=== PATIENT | female | born 1955 | race Caucasian/White ===

== ENCOUNTER 2025-06-14 08:43 | Inpatient (IN) | payer MEDICARE ==
[2025-06-14] MEDS ORDERED: HEPARIN SODIUM 1,000 UN/ML (10ML VL) IV PRN (09:10)
[2025-06-14] MEDS ORDERED: VANCOMYCIN IV PER PHARMACY 1 EACH MISC MISCELLANE PRN (09:10)
--- NOTE | 2025-06-14 09:25 | ED ---
General Adult HPI - General Chief complaint: Arrhythmia/Palpitations Stated complaint: Afib Time Seen by Provider: 06/14/25 08:56 Source: patient, EMS, RN notes reviewed Mode of arrival: EMS - History of Present Illness Initial comments: This is a 70-year-old female presenting to the emergency department as a transfer from [place] via EMS for further management of new onset atrial fibrillation with rapid ventricular response. Patient states that she went to the emergency department yesterday evening for concerns of generalized weakness and difficulty ambulation due to weakness of her bilateral lower extremities. Patient does report over the last 2 months she has been feeling increasingly weak however denies symptoms of exertional dyspnea, chest pain, palpitations, fevers or chills. At this time on questioning patient acute complaint heart palpitations, dyspnea, headaches, abdominal pain, urinary or bowel habit changes. Denies peripheral edema, orthopnea, exertional dyspnea. At outside ER facility patient's labs are concerning for an elevated troponin of 0.815, elevated NT proBNP of 13,500, urinalysis concerning for infection with 2+ bacteria, numerous white cells and leukocytes, LACY with a creatinine of 2.88, and CBC with a leukocytosis of 28.9 and transaminitis with an AST of 178, ALT of 271 and alkaline phosphatase of 183. - Related Data Allergies Allergy/AdvReac Type Severity Reaction Status Date / Time No Known Allergies Allergy Verified 06/14/25 08:55 Review of Systems ROS Statement: Those systems with pertinent positive or pertinent negative responses have been documented in the HPI. ROS Other: All systems not noted in ROS Statement are negative. Past Medical History Past Medical History: No Reported History History of Any Multi-Drug Resistant Organisms: None Reported Past Surgical History: Section, Tubal Ligation Additional Past Surgical History / Comment(s): Bilateral cataract surgery Past Psychological History: Anxiety Smoking Status: Never smoker Past Alcohol Use History: None Reported Past Drug Use History: None Reported General Exam General appearance: alert, in no apparent distress, obese Eye exam: Present: normal appearance, PERRL, EOMI. Absent: scleral icterus, conjunctival injection, periorbital swelling Neck exam: Present: normal inspection. Absent: tenderness, meningismus, lymphadenopathy Respiratory exam: Present: normal lung sounds bilaterally. Absent: respiratory distress, wheezes, rales, rhonchi, stridor Cardiovascular Exam: Present: tachycardia, irregular rhythm. Absent: regular rate, normal rhythm GI/Abdominal exam: Present: soft, normal bowel sounds. Absent: distended, tende rness, guarding, rebound, rigid Extremities exam: Present: normal inspection, full ROM, normal capillary refill, other (left lower leg medial erythema and edema). Absent: tenderness, pedal edema, joint swelling, calf tenderness Back exam: Present: normal inspection. Absent: CVA tenderness (R), CVA tenderness (L) Course Vital Signs 06/14/25 06/14/25 08:46 08:58 Temperature 98.1 F Pulse Rate 102 H 108 H Respiratory 20 20 Rate Blood Pressure 99/89 107/51 O2 Sat by Pulse 93 L 94 L Oximetry Medical Decision Making - Medical Decision Making Was pt. sent in by a medical professional or institution (LAVELL Araujo, FITNESS CONSULTANT, urgent care, hospital, or shelter...) When possible be specific @ -Patient was transferred from outside facility for diagnoses as described below. Did you speak to anyone other than the patient for history (EMS, parent, family, police, friend...)? What history was obtained from this source @ -No Did you review nursing and triage notes (agree or disagree)? Why? @ -I reviewed and agree with nursing and triage notes Were old charts reviewed (outside hosp., previous admission, EMS record, old EKG, old radiological studies, urgent care reports/EKG's, shelter records)? Report findings @ -I reviewed the patient's transfer packet from [facility] where EKG revealed atrial fibrillation with rapid ventricular response, elevated troponin, LACY and leukocytosis. Differential Diagnosis (chest pain, altered mental status, abdominal pain women, abdominal pain men, vaginal bleeding, weakness, fever, dyspnea, syncope, headache, dizziness, GI bleed, back pain, seizure, CVA, palpatations, mental health, musculoskeletal)? @ -Differential Weakness: Hypoglycemia, shock, sepsis, hyponatremia, anemia, infection, AR, ETOH, adverse medicine reaction, overdose, stroke, this is not meant to be an all-inclusive list. EKG interpreted by me (3pts min.). @ -Completed at 854 atrial fibrillation with rapid ventricular response, ventricular rate of 104, QRS 94, QT 345, QTc 405. X-rays interpreted by me (1pt min.). @ -None done CT interpreted by me (1pt min.). @ -None done U/S interpreted by me (1pt. min.). @ -None done What testing was considered but not performed or refused? (CT, X-rays, U/S, l abs)? Why? @ -None What meds were considered but not given or refused? Why? @ -None Did you discuss the management of the patient with other professionals (professionals i.e. DrKena, PA, FITNESS CONSULTANT, lab, RT, psych nurse, social media content specialist, professor of family medicine, teacher, contracting officer, rn case mgr)? Give summary @ -I spoke with attending Dr. Guidry, was agreed to admit the patient. Was smoking cessation discussed for >3mins.? @ -No Was critical care preformed (if so, how long)? @ -Yes, great this patient was Were there social determinants of health that impacted care today? How? (Homelessness, low income, unemployed, alcoholism, drug addiction, transportation, low edu. Level, literacy, decrease access to med. care, penitentiary, rehab)? @ -No Was there de-escalation of care discussed even if they declined (Discuss DNR or withdrawal of care, Hospice)? DNR status @ -No What co-morbidities impacted this encounter? (DM, HTN, Smoking, COPD, CAD, Cancer, CVA, ARF, Chemo, Hep., AIDS, mental health diagnosis, sleep apnea, morbid obesity)? @ -morbid obesity Was patient admitted / discharged? Hospital course, mention meds given and route, prescriptions, significant lab abnormalities, going to OR and other pertinent info. @ -Admitted. 70-year-old female presenting as transfer for new onset A-fib with RVR. Patient rate is stable on arrival fluctuating between the 90s to 110s, nursing staff has ceased Cardizem drip on patient's arrival. Patient is in no signs of distress. Physical exam reveals edematous and bilateral lower extremity erythema of legs with the left mid leg more erythematous concerning for cellulitis. Patient will be continued on Cardizem drip at a rate of 5. Additionally, she is provided with the lactated Ringer's bolus and started on Rocephin for UTI/cellulitis after blood cultures are obtained. Patient is also started on a heparin drip with concern for NSTEMI and new onset atrial fibrillation with rapid ventricular response. Case was discussed with my atten ding Dr. Blunt. Patient is admitted to Dr. Hurley Undiagnosed new problem with uncertain prognosis? @ -No Drug Therapy requiring intensive monitoring for toxicity (Heparin, Nitro, Ins ulin, Cardizem)? @ -yes, Heparin and cardizem drips Were any procedures done? @ -No Diagnosis/symptom? @ -Urinary tract infection/cellulitis with sepsis, LACY, NSTEMI, new onset atrial fibrillation with rapid ventricular response Acute, or Chronic, or Acute on Chronic? @ -acute Uncomplicated (without systemic symptoms) or Complicated (systemic symptoms)? @ -complicated Side effects of treatment? @ -No Exacerbation, Progression, or Severe Exacerbation? @ -No Poses a threat to life or bodily function? How? (Chest pain, USA, AR, pneumonia, PE, COPD, DKA, ARF, appy, cholecystitis, CVA, Diverticulitis, Homicidal, Suicidal, threat to staff... and all critical care pts) @ -Yes, NSTEMI has potential to lead to endorgan system dysfunction and potential of . Disposition Clinical Impression: Atrial fibrillation with rapid ventricular response, LACY (acute kidney injury), NSTEMI (non-ST elevated myocardial infarction) Disposition: ADMITTED IP TO THIS [facility] Condition: Serious Referrals: None,Stated [Primary Care Provider] - 1-2 days Decision to Admit Reason: Admit from EC Decision Date: 06/14/25 Decision Time: 09:39
[2025-06-14] MEDS: VANCOMYCIN 2,500 MG in SODIUM CHLORIDE 0.9% 500 ML 500 ML IVPB STA (09:37)
[2025-06-14] MEDS: CEFEPIME 2 GM in SODIUM CHLORIDE 0.9% 100 ML IVPB STA (09:37)
[2025-06-14] MEDS ORDERED: ONDANSETRON 4 MG/2 ML VIAL IVP PRN (09:39)
[2025-06-14] MEDS ORDERED: NALOXONE 0.4 MG/ML 1 ML VIAL IV PRN (09:39)
[2025-06-14] MEDS: LACTATED RINGERS 1,000 ML IV ONE (10:04)
[2025-06-14] MEDS: cefTRIAXone IN SWFI 1,000 MG/10 ML SYRINGE IVP SCH (10:05)
[2025-06-14] MEDS: HEPARIN SODIUM 1,000 UN/ML (10ML VL) IV ONE (10:12)
[2025-06-14] MEDS: HEPARIN SOD,PORK IN 0.45% NACL 25,000 UNIT in 0.45% NACL 1 250ML.BAG IV SCH (10:13)
[2025-06-14] MEDS: DILTIAZEM 125 MG in DEXTROSE 5% IN WATER 100 ML IV SCH (10:19)
[2025-06-14 10:51] LABS: HCT 33.8 % (37.2-46.3); HGB 11.4 g/dL (12.0-15.0); MCH 32.4 pg (27.0-32.0); MCHC 33.7 g/dL (32.0-37.0); MCV 96.0 fL (80.0-97.0); Platelet Count 141 10*3/uL (140-440); RBC 3.52 10*6/uL (4.10-5.20); RDW 13.5 % (11.5-14.5); WBC 28.80 10*3/uL (4.50-10.00)
[2025-06-14 10:53] LABS: ALT 211 U/L (4-34); AST 142 U/L (14-36); African American GFR (CKD) 26 (>60 ml/min/1.73 sqM); Albumin 2.9 g/dL (3.5-5.0); Alkaline Phosphatase 200 U/L (38-126); Anion Gap 10 mmol/L; Blood Urea Nitrogen 57 mg/dL (7-17); Calcium 8.1 mg/dL (8.4-10.2); Carbon Dioxide 23 mmol/L (22-30); Chloride 105 mmol/L (98-107); Glucose 80 mg/dL (74-99); Non-African American GFR(CKD) 23 (>60 ml/min/1.73 sqM); Potassium 3.4 mmol/L (3.5-5.1); Sodium 138 mmol/L (137-145); Total Protein 6.0 g/dL (6.3-8.2)
[2025-06-14 11:00] LABS: INR 1.1 (<1.2); Partial Thromboplastin Time 28.2 sec (22.0-30.0); Prothrombin Time 11.6 sec (10.0-12.5)
[2025-06-14 11:31] LABS: Lymphocytes # (M) 3.46 k/uL (1.0-4.8); Monocytes # (M) 1.44 k/uL (0-1.0); Neutrophils # (M) 23.90 k/uL (1.3-7.7); Neutrophils % (M) 83 %; Total Cells Counted 100
[2025-06-14 11:32] LABS: Anisocytosis (M) Present
--- NOTE | 2025-06-14 12:45 | US ---
EXAMINATION TYPE: US renals and bladder DATE OF EXAM: 06/14/2025 COMPARISON: NONE CLINICAL INDICATION: Female, 70 years old with history of eda; Patient denies any signs, symptoms, or relevant history TECHNIQUE: Grayscale imaging of the bilateral kidneys and urinary bladder: FINDINGS: EXAM MEASUREMENTS: Right Kidney: 11.0 x 5.2 x 5.5 cm Left Kidney: 10.7 x 5.9 x 5.5 cm Post Void Residual Volume: NA mL Right Kidney: wnl, no evidence for hydronephrosis, mass or renal calculus. Left Kidney: wnl, no evidence for hydronephrosis, mass or renal calculus. Bladder: Not fully distended Bilateral Jets seen: Not able to assess Normal Post Void Residual: NA There is no evidence for hydronephrosis at this point in time. No nephrolithiasis is seen. No helena s are identified. The urinary bladder is anechoic. IMPRESSION: No evidence for acute process. [facility], , 06/14/2025 12:43 PM
--- NOTE | 2025-06-14 13:22 | P.CRDCN ---
History of Present Illness Consult date: 06/14/25 Consult reason: atrial fibrillation History of present illness: Patient is a 70-year-old female with no significant past medical history was transferred from [place] via EMS to [facility] for further management of new onset A-fib with the RVR. Patient reports that she presented to the outside facility yesterday due to generalized weakness, fatigue and nausea and vomiting ongoing for 3 days. Patient reports that yesterday she could barely walk and take shower due to fatigue and tiredness. Denies chest pain or shortness of breath. Patient reports that she has been trying keto diet to lose weight. Patient reports no history of coronary artery disease or arrhythmias. 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 Patient is currently not on any medication including medication for blood pressure or diabetes or any blood thinner. She is a non-smoker and no drinker and denies use of illicit drugs. Patient reports that she is too embarrassed to go to doctors due to her weight and have not seen a doctor for many years. Patient denies chest pain, shortness of breath, orthopnea, PND, dizziness, lightheadedness, worsening swelling of the legs, cough, dysuria, urgency or frequency of urination, diarrhea or constipation. Her troponin at outside facility was 0.8 and BNP 13,500 Labs and data on this admission: WBC 28, hemoglobin 11.4, platelet count 141, sodium 138, potassium 3.4, BUN 57, creatinine 2.15, AST 142, ALT 211, ALP 200 Troponin I 0.12 EKG shows A-fib with RVR Vitals: Temperature 98.1 F, pulse rate 102 bpm, respirate 20, blood pressure 99/89, oxygen saturation 93% on room air Review of systems: Pertinent positives and negatives as discussed in HPI, a complete review of systems was performed and all other systems are negative. Social history: As in HPI Family History: As in HPI Physical examination: Vital signs reviewed General: non toxic, no distress, appears at stated age, morbidly obese Derm: Warm erythematous nonpurulent lesions on lower extremities especially in skin fold and on bilateral frank Head: atraumatic, normocephalic, symmetric Eyes: EOMI, no lid lag, anicteric sclera, pupils equal round reactive to light ENT: Nose and ears atraumatic Neck: No cervical lymphadenopathy, trachea midline, supple Mouth: no lip lesion, mucus membranes moist Cardiovascular: S1S2 irregular, systolic murmur, positive dorsalis pedis pulse bilateral, 1+ bilateral pitting edema Lungs: CTA bilateral, no rhonchi, no rales, no accessory muscle use Abdominal: soft, nontender to palpation, no guarding Ext: muscle strength 5 out of 5 in all 4 extremities grossly, no gross muscle atrophy, no contractures, Neuro: CN II-XI grossly intact, no gross focal neuro deficits Psych: Alert, oriented, appropriate affect Assessment: #A-fib with RVR, new onset versus paroxysmal versus permanent #Elevated troponin, likely type II NSTEMI due to oxygen supply/demand mismatch #Sepsis secondary to infection, likely source is lower extremity cellulitis #Morbidly obese #Transaminitis #Prerenal azotemia #Normocytic anemia #Generalized weakness Plan: Discontinue heparin drip Initiate Eliquis 2.5 mg twice daily and then uptitrate to 5 mg twice daily once her renal function improves Initiate metoprolol 25 mg 3 times daily Continue with Cardizem drip Order lipid panel, TSH, HbA1c, vitamin B12 and folate RBC Order echocardiogram Order iron studies Order renal/bladder ultrasound Replete electrolytes CMP tomorrow a.m. Continue IV antibiotics as per ID Rest of management as per primary Dictation was produced using numberFire dictation software. Please excuse any grammatical, word or spelling errors. I signature Ed Lopes MD PGY 2 Past Medical History Past Medical History: No Reported History History of Any Multi-Drug Resistant Organisms: None Reported Past Surgical History: Section, Tubal Ligation Additional Past Surgical History / Comment(s): Bilateral cataract surgery Past Psychological History: Anxiety Smoking Status: Never smoker Past Alcohol Use History: None Reported Past Drug Use History: None Reported Medications and Allergies Home Medications Medication Instructions Recorded Confirmed Type No Known Home Medications 06/14/25 06/14/25 History Allergies Allergy/AdvReac Type Severity Reaction Status Date / Time No Known Allergies Allergy Verified 06/14/25 10:14 Physical Exam Vitals: Vital Signs Temp Pulse Resp BP Pulse Ox 06/14/25 10:16 110 H 20 100/39 97 06/14/25 08:58 108 H 20 107/51 94 L 06/14/25 08:46 98.1 F 102 H 20 99/89 93 L Intake and Output 06/13/25 06/14/25 06/14/25 22:59 06:59 14:59 Other: Weight 203.7 kg Results 06/14/25 10:00 06/14/25 10:00 Cardiac Enzymes 06/14/25 Range/Units 10:00 AST 142 H (14-36) U/L Comprehensive Metabolic Panel 06/14/25 Range/Units 10:00 Sodium 138 (137-145) mmol/L Potassium 3.4 L (3.5-5.1) mmol/L Chloride 105 (98-107) mmol/L Carbon Dioxide 23 (22-30) mmol/L BUN 57 H (7-17) mg/dL Creatinine 2.15 H (0.52-1.04) mg/dL Glucose 80 (74-99) mg/dL Calcium 8.1 L (8.4-10.2) mg/dL AST 142 H (14-36) U/L ALT 211 H (4-34) U/L Alkaline Phosphatase 200 H (38-126) U/L Total Protein 6.0 L (6.3-8.2) g/dL Albumin 2.9 L (3.5-5.0) g/dL Current Medications Generic Name Dose Route Start Last Admin Trade Name Freq PRN Reason Stop Dose Admin Acetaminophen 650 mg 06/14/25 09:39 Acetaminophen Tab 325 Mg Tab PO Q6HR PRN Mild Pain or Fever > 100.5 Ceftriaxone Sodium 1,000 mg 06/14/25 09:45 06/14/25 10:05 Ceftriaxone In Swfi 1,000 Mg/10 Ml Syringe IVP 1,000 mg Q24H ANUSHKA Administration Protocol Heparin Sodium (Porcine) 0 unit 06/14/25 09:10 Heparin Sodium 1,000 Un/Ml (10ml Vl) IV PER PROTOCOL PRN Low PTT Protocol Heparin Sodium/Sodium Chloride 250 mls @ 10 mls/hr 06/14/25 09:15 06/14/25 10:13 25,000 unit/ Sodium Chloride IV 4.909 units/kg/hr .Q24H ANUSHKA 10 mls/hr Administration Protocol 4.909 UNITS/KG/HR Diltiazem HCl 125 mg/ Dextrose 125 mls @ 5 mls/hr 06/14/25 09:45 06/14/25 10:19 /Water IV 5 mg/hr .Q24H ANUSHKA 5 mls/hr Administration Protocol 5 MG/HR Naloxone HCl 0.2 mg 06/14/25 09:39 Naloxone 0.4 Mg/Ml 1 Ml Vial IV Q2M PRN Opioid Reversal Ondansetron HCl 4 mg 06/14/25 09:39 Ondansetron 4 Mg/2 Ml Vial IVP Q8HR PRN Nausea And Vomiting Intake and Output 06/13/25 06/14/25 06/14/25 22:59 06:59 14:59 Other: Weight 203.7 kg Patient Weight 06/15/25 06:59 Weight 203.7 kg 06/14/25 10:00
[2025-06-14 13:47] LABS: Magnesium 1.8 mg/dL (1.6-2.3)
[2025-06-14] MEDS: POTASSIUM CHLORIDE ER 20 MEQ TAB.ER PO STA (13:48)
[2025-06-14] MEDS: METOPROLOL TARTRATE 25 MG TAB PO SCH (13:48)
[2025-06-14 13:52] LABS: Bacteria,Urine Occasional /hpf; Bilirubin,Urine Negative (Negative); Blood,Urine Small (Negative); Color,Urine Light Yellow; Glucose,Urine (UA) Negative (Negative); Ketones,Urine Negative (Negative); Leukocyte Esterase,Urine Large (Negative); Mucus,Urine Rare /hpf; Nitrite,Urine Negative (Negative); PH, Urine 5.5 (5.0-8.0); Protein,Urine Trace (Negative); RBC,Urine 3 /hpf (0-5); Specific Gravity,Urine 1.010 (1.001-1.035); Squamous Epithelial Cell,Urine <1 /hpf (0-4); Urobilinogen,Urine <2.0 mg/dL (<2.0); WBC,Urine 28 /hpf (0-5)
--- NOTE | 2025-06-14 15:02 | US ---
EXAMINATION TYPE: US abdomen limited DATE OF EXAM: 06/14/2025 COMPARISON: NONE CLINICAL INDICATION: Female, 70 years old with history of Elevated liver enzymes; Abnormal labs. TECHNIQUE: Grayscale and color Doppler imaging of the right upper quadrant was performed. FINDINGS: EXAM MEASUREMENTS: Liver Length: 19.7 cm Gallbladder Wall: 0.2 cm CBD: 0.5 cm Right Kidney: 12.1 x 5.8 x 5.0 cm Pancreas: Head and tail obscured by overlying bowel gas. Echogenic in apperance Liver: Enlarged in size Gallbladder: Echogenic focus = 2.3 cm. Internal posterior echoes. Evidence for sonographic Whitten's sign: neg CBD: wnl Right Kidney: Medial anechoic area seen at hilum, dilated renal pelvis. IMPRESSION: 1. No evidence for acute process. 2. Cholelithiasis. 3. Hepatomegaly [facility], , 06/14/2025 2:59 PM
--- NOTE | 2025-06-14 19:51 | P.HPIM ---
History of Present Illness H&P Date: 06/14/25 Chief Complaint: Tired This is a pleasant 70-year-old patient with no family doctor. She presents feeling unwell. Going on for a few days. Started feeling weak in the legs. Rather tired. Has chronic swelling of lower extremity but not such edema. Denies any chest pain or shortness of breath. She did not vomited 2 days ago. She continued to feel legs feel very weak. To the point of difficulty walking. EKG in the ER showed atrial fibrillation. Rate of 104. Patient placed on IV Cardizem drip. An IV heparin drip. Review of systems: GEN.: Tired EYES: None HEENT: None NECK: None RESPIRATORY: None CARDIOVASCULAR: None GASTROINTESTINAL: None GENITOURINARY: None MUSCULOSKELETAL: [Right pains LYMPHATICS: None HEMATOLOGICAL: None PSYCHIATRY: None NEUROLOGICAL: Does use a walker. Social history: . Lives with her . Does use a walker. Denies smoking. Denies alcohol. Physical examination: VITAL SIGNS: [98.1, 102, 20, 99 x 89, 93% room air upon presentation GENERAL: [BMI 70.3, reclining bed awake a bit tired appearing. EYES: [Pupils equal. Conjunctiva crzu l. HEENT: External appearance of nose and ears normal, oral cavity grossly normal. NECK: JVD not raised; masses not palpable. HEART: First and second heart sounds are normal; nonpitting edema. LUNGS: Respiratory rate increased; decreased breath sounds. ABDOMEN: Soft, nontender, liver spleen not palpable, no masses palpable. PSYCH: Alert and oriented x3; mood and affect cruz l. MUSCULOSKELETAL:No Clubbing/cyanosis;muscles-grossly intact NEUROLOGICAL: Cranial nerves grossly intact; no facial asymmetry, power and sensation grossly intact. LYMPHATICS: No lymph nodes palpable in the axilla and neck INVESTIGATIONS, reviewed in the clinical context: June 14, 2025: White count 28.8 hemoglobin 11.4 platelets 141 sodium 138 potassium 3.4 BUN 57 creatinine 2.15 AST 142 ALT 211 Troponin I 0.123 0.100 0.084 TSH 3.28 UA: Large leukoesterase occasional bacteria. Negative for nitrite EKG tracing personally reviewed by me-atrial fibrillation. Rate 104 PVC. Assessment and plan: - New onset atrial fibrillation with rapid ventricular rate IV Cardizem drip. Lopressor. Eliquis Cardiology consulted. 2D echo. - Morbid obesity BMI 70.3 Weight loss measures - Chronic gait dysfunction does use a walker at baseline - Chronic lower extremity lymphedema - Full code Care was discussed with patient. Questions answered. - Past Medical History Past Medical History: No Reported History Additional Past Medical History / Comment(s): cataract surgery, 2 sections History of Any Multi-Drug Resistant Organisms: None Reported Past Surgical History: Section, Tubal Ligation Additional Past Surgical History / Comment(s): Bilateral cataract surgery Past Anesthesia/Blood Transfusion Reactions: No Reported Reaction Past Psychological History: Anxiety Smoking Status: Never smoker Past Alcohol Use History: None Reported Past Drug Use History: None Reported - Past Family History Mother Family Medical History: Cancer Additional Family Medical History / Comment(s): mother- pancreatic cancer Medications and Allergies Home Medications Medication Instructions Recorded Confirmed Type No Known Home Medications 06/14/25 06/14/25 History Allergies Allergy/AdvReac Type Severity Reaction Status Date / Time No Known Allergies Allergy Verified 06/14/25 10:14 Physical Exam Vitals: Vital Signs Temp Pulse Pulse Resp BP BP Pulse Ox 06/14/25 16:00 98.6 F 95 16 91/46 06/14/25 14:47 97.5 F L 99 20 97/85 97 06/14/25 14:00 16 06/14/25 13:47 101 H 20 105/52 97 06/14/25 13:00 101 H 20 90/45 94 L 06/14/25 12:07 98.5 F 86 14 94/56 98 06/14/25 10:16 110 H 20 100/39 97 06/14/25 08:58 108 H 20 107/51 94 L 06/14/25 08:46 98.1 F 102 H 20 99/89 93 L Intake and Output 06/14/25 06/14/25 06/14/25 06:59 14:59 22:59 Intake Total 0 Output Total 150 Balance -150 0 Intake: Oral 0 Output: Urine 150 Other: Voiding Method External Catheter Weight 197.5 kg Results CBC & Chem 7: 06/14/25 10:00 06/14/25 10:00 Labs: Abnormal Lab Results - Last 24 Hours (Table) 06/14/25 06/14/25 06/14/25 Range/Units 10:00 10:00 10:00 WBC 28.80 H (4.50-10.00) 10*3/uL RBC 3.52 L (4.10-5.20) 10*6/uL Hgb 11.4 L (12.0-15.0) g/dL Hct 33.8 L (37.2-46.3) % MCH 32.4 H (27.0-32.0) pg Immature Gran # 0.15 H (0.00-0.04) 10*3/uL Neutrophils # (Manual) 23.90 H (1.3-7.7) k/uL Monocytes # (Manual) 1.44 H (0-1.0) k/uL Potassium 3.4 L (3.5-5.1) mmol/L BUN 57 H (7-17) mg/dL Creatinine 2.15 H (0.52-1.04) mg/dL Calcium 8.1 L (8.4-10.2) mg/dL Total Bilirubin 2.3 H (0.2-1.3) mg/dL AST 142 H (14-36) U/L ALT 211 H (4-34) U/L Alkaline Phosphatase 200 H (38-126) U/L Troponin I 0.123 H* (0.000-0.034) ng/mL Total Protein 6.0 L (6.3-8.2) g/dL Albumin 2.9 L (3.5-5.0) g/dL Urine Appearance (Clear) Urine Protein (Negative) Urine Blood (Negative) Ur Leukocyte Esterase (Negative) Urine WBC (0-5) /hpf Urine Bacteria (None) /hpf Urine Mucus (None) /hpf 06/14/25 06/14/25 06/14/25 Range/Units 13:10 13:43 16:20 WBC (4.50-10.00) 10*3/uL RBC (4.10-5.20) 10*6/uL Hgb (12.0-15.0) g/dL Hct (37.2-46.3) % MCH (27.0-32.0) pg Immature Gran # (0.00-0.04) 10*3/uL Neutrophils # (Manual) (1.3-7.7) k/uL Monocytes # (Manual) (0-1.0) k/uL Potassium (3.5-5.1) mmol/L BUN (7-17) mg/dL Creatinine (0.52-1.04) mg/dL Calcium (8.4-10.2) mg/dL Total Bilirubin (0.2-1.3) mg/dL AST (14-36) U/L ALT (4-34) U/L Alkaline Phosphatase (38-126) U/L Troponin I 0.100 H* 0.084 H* (0.000-0.034) ng/mL Total Protein (6.3-8.2) g/dL Albumin (3.5-5.0) g/dL Urine Appearance Cloudy H (Clear) Urine Protein Trace H (Negative) Urine Blood Small H (Negative) Ur Leukocyte Esterase Large H (Negative) Urine WBC 28 H (0-5) /hpf Urine Bacteria Occasional H (None) /hpf Urine Mucus Rare H (None) /hpf Thrombosis Risk Factor Assmnt - Choose All That Apply Any of the Below Risk Factors Present?: Yes Each Factor Represents 1 point: Age 41-60 years, Obesity (BMI >25), Swollen legs (current) Other Risk Factors: No Other congenital or acquired thrombophilia - If yes, enter type in comment: No Thrombosis Risk Factor Assessment Total Risk Factor Score: 3 Thrombosis Risk Factor Assessment Level: Moderate Risk
[2025-06-14] MEDS: APIXABAN 2.5 MG TABLET PO SCH (20:25)
[2025-06-14] MEDS ORDERED: CEFEPIME 1 GM in SODIUM CHLORIDE 0.9% 50 ML IVPB SCH (21:00)
--- NOTE | 2025-06-14 21:58 | P.CONS ---
History of Present Illness - Reason for Consult Consult date: 06/14/25 UTI, cellulitis, sepsis Requesting physician: Teresita Ugalde - Chief Complaint Weakness nausea and vomiting x 1 day - History of Present Illness Patient is a 70-year-old female with a past medical history significant for anxiety morbid obesity did have a chronic swelling lower extremity has been transfer from [facility] for evaluation and treatment of new onset atrial fibrillation with RVR patient presented to the hospital presenting concern of generalized weakness fatigue nausea and vomiting that has been going on for 3 days patient described multiple episode of vomiting no significant abdominal pain or diarrhea though has been feeling weak and fatigue patient denies having any headache or URI symptom no chest pain shortness of breath or cough patient on presentation to the hospital was afebrile no fever Hemoccult subsequently patient was tachycardic not hypotensive or hypoxic patient did have elevated white of 28.80. Creatinine has been mildly elevated also with elevated liver enzymes urine has been positive patient did have a renal ultrasound no evidence for acute process patient was noticed to have some erythema to the left lower extremity she has been empirically started on Rocephin infectious was consulted for further management of antibiotic to be concerning for UTI cellulitis and sepsis Review of Systems Positive point and negatives has been mentioned in the HPI, complete review of systems was performed and all other systems are negative Past Medical History Past Medical History: No Reported History History of Any Multi-Drug Resistant Organisms: None Reported Past Surgical History: Section, Tubal Ligation Additional Past Surgical History / Comment(s): Bilateral cataract surgery Past Psychological History: Anxiety Smoking Status: Never smoker Past Alcohol Use History: None Reported Past Drug Use History: None Reported - Past Family History Mother Family Medical History: Cancer Additional Family Medical History / Comment(s): mother- pancreatic cancer Medications and Allergies Home Medications Medication Instructions Recorded Confirmed Type No Known Home Medications 06/14/25 06/14/25 History Allergies Allergy/AdvReac Type Severity Reaction Status Date / Time No Known Allergies Allergy Verified 06/14/25 10:14 Physical Exam Vitals: Vital Signs Temp Pulse Resp BP Pulse Ox 06/14/25 10:16 110 H 20 100/39 97 06/14/25 08:58 108 H 20 107/51 94 L 06/14/25 08:46 98.1 F 102 H 20 99/89 93 L Intake and Output 06/13/25 06/14/25 06/14/25 22:59 06:59 14:59 Other: Weight 203.7 kg GENERAL DESCRIPTION: Elderly female lying in bed, no distress. No tachypnea or accessory muscle of respiration use. HEENT: Shows Pallor , no scleral icterus. Oral mucous membrane is dry. NECK: Trachea central, no thyromegaly. LUNGS: Unlabored breathing. Clear to auscultation anteriorly. No wheeze or crackle. HEART: S1, S2, regular rate and rhythm. No loud murmur ABDOMEN: Soft, no tenderness , guarding or rigidity, no organomegaly EXTREMITIES: Diffuse swelling to bilateral lower extremity with some erythema to the left leg mildly warm no skin breakdown or any drainage SKIN: No rash, no masses palpable. NEUROLOGICAL: The patient is awake, alert, oriented x3, mood and affect normal. Results CBC & Chem 7: 06/15/25 06:41 06/15/25 05:48 Labs: Abnormal Lab Results - Last 24 Hours (Table) 06/14/25 06/14/25 06/14/25 Range/Units 10:00 10:00 10:00 WBC 28.80 H (4.50-10.00) 10*3/uL RBC 3.52 L (4.10-5.20) 10*6/uL Hgb 11.4 L (12.0-15.0) g/dL Hct 33.8 L (37.2-46.3) % MCH 32.4 H (27.0-32.0) pg Immature Gran # 0.15 H (0.00-0.04) 10*3/uL Neutrophils # (Manual) 23.90 H (1.3-7.7) k/uL Monocytes # (Manual) 1.44 H (0-1.0) k/uL Potassium 3.4 L (3.5-5.1) mmol/L BUN 57 H (7-17) mg/dL Creatinine 2.15 H (0.52-1.04) mg/dL Calcium 8.1 L (8.4-10.2) mg/dL Total Bilirubin 2.3 H (0.2-1.3) mg/dL AST 142 H (14-36) U/L ALT 211 H (4-34) U/L Alkaline Phosphatase 200 H (38-126) U/L Troponin I 0.123 H* (0.000-0.034) ng/mL Total Protein 6.0 L (6.3-8.2) g/dL Albumin 2.9 L (3.5-5.0) g/dL Assessment and Plan (1) Leukocytosis Current Visit: Yes Status: Acute Code(s): D72.829 - ELEVATED WHITE BLOOD CELL COUNT, UNSPECIFIED SNOMED Code(s): 263980933 (2) Left leg cellulitis Current Visit: Yes Status: Acute Code(s): L03.116 - CELLULITIS OF LEFT LOWER LIMB SNOMED Code(s): 95184369304127451 (3) Elevated liver enzymes Current Visit: Yes Status: Acute Code(s): R74.8 - ABNORMAL LEVELS OF OTHER SERUM ENZYMES SNOMED Code(s): 712520885 (4) UTI (urinary tract infection) Current Visit: Yes Status: Acute Code(s): N39.0 - URINARY TRACT INFECTION, SITE NOT SPECIFIED SNOMED Code(s): 77368820 Plan: 1patient presented hospital with generalized weakness did have associated nausea and vomiting patient noted to have a significant elevated white count source is likely multifactorial with predominantly GI symptom and also noted to have elevated liver enzymes question of possible gallbladder disease. 2patient did have minimal erythema to the left lower extremity cellulitis not entirely excluded. 3patient did have cloudy urine positive UA along with urine symptoms of burning frequency concerning for symptomatic UTI 4we will obtain ultrasound of the right upper quadrant area to make sure no evidence of any gallbladder disease 5-continue with empiric Rocephin while waiting for the workup to be completed We will follow on clinical condition and cultures to further adjust medication if needed Thank you for this consultation we will follow the patient along with you Dictation was produced using [employer] dictation software. please excuse any grammatical, word or spelling errors. Time with Patient: Greater than 30
[2025-06-14 22:11] LABS: Cholesterol 160.00 mg/dL (0.00-200.00); HDL Cholesterol 33.20 mg/dL (40.00-60.00); Iron 68 UG/DL (50-170); LDL Cholesterol,Calculated 99.4 mg/dL (0.0-131.0); Total Iron Binding Capacity 179 UG/DL (228-460); Triglycerides 137.00 mg/dL (0.00-149.00); VLDL Calculation 27.40 mg/dL (5.00-40.00)
[2025-06-14 22:32] LABS: Ferritin 3275.0 ng/mL (10.0-291.0)
[2025-06-15 00:08] LABS: Vitamin B12 2121.0 pg/mL (200.0-944.0)
[2025-06-15] MEDS: NYSTATIN 100,000 UNIT/GM POWD 15 GM TOPICAL SCH (04:12)
[2025-06-15 07:22] LABS: INR 1.0 (<1.2); Prothrombin Time 11.0 sec (10.0-12.5)
[2025-06-15 07:47] LABS: ALT 167 U/L (4-34); AST 83 U/L (14-36); African American GFR (CKD) 35 (>60 ml/min/1.73 sqM); Albumin 3.0 g/dL (3.5-5.0); Alkaline Phosphatase 213 U/L (38-126); Anion Gap 11 mmol/L; Blood Urea Nitrogen 52 mg/dL (7-17); Calcium 8.5 mg/dL (8.4-10.2); Carbon Dioxide 23 mmol/L (22-30); Chloride 105 mmol/L (98-107); Glucose 56 mg/dL (74-99); Magnesium 2.0 mg/dL (1.6-2.3); Non-African American GFR(CKD) 31 (>60 ml/min/1.73 sqM); Potassium 4.0 mmol/L (3.5-5.1); Sodium 139 mmol/L (137-145); Total Protein 6.2 g/dL (6.3-8.2)
[2025-06-15 08:01] LABS: Basophils # (A) 0.11 10*3/uL (0.00-0.10); Basophils % (A) 0.6 %; Eosinophils # (A) 0.26 10*3/uL (0.04-0.35); Eosinophils % (A) 1.4 %; HCT 34.6 % (37.2-46.3); HGB 11.2 g/dL (12.0-15.0); Lymphocytes # (A) 2.75 10*3/uL (0.90-5.00); Lymphocytes % (A) 14.7 %; MCH 31.3 pg (27.0-32.0); MCHC 32.4 g/dL (32.0-37.0); MCV 96.6 fL (80.0-97.0); Monocytes # (A) 1.25 10*3/uL (0.20-1.00); Monocytes % (A) 6.7 %; Neutrophils # (A) 14.17 10*3/uL (1.80-7.70); Neutrophils % (A) 75.6 %; Platelet Count 141 10*3/uL (140-440); RBC 3.58 10*6/uL (4.10-5.20); RDW 14.0 % (11.5-14.5); WBC 18.72 10*3/uL (4.50-10.00)
--- NOTE | 2025-06-15 08:49 | CA ---
Transthoracic Echo Report Name: Carmen Ruiz Age: 70 Gender: F : 1955 Exam Date: 06/14/2025 13:23 Exam Location: [place] [facility] Ht (in): 66 Wt (lb): 449 Ordering Physician: Ed Lopes MD Attending/Referring Phys: Insurance Underwriting Assistant Linda Maxwell RDCS Procedure CPT: Indications: Afib with RVR Cardiac Hx: Technical Quality: Fair Contrast 1: Total Dose (mL): Contrast 2: Total Dose (mL): MEASUREMENTS (Male / Female) Normal Values 2D ECHO LV Diastolic Diameter PLAX 5.0 cm 4.2 - 5.9 / 3.9 - 5.3 cm LV Systolic Diameter PLAX 3.1 cm IVS Diastolic Thickness 1.2 cm 0.6 - 1.0 / 0.6 - 0.9 cm LVPW Diastolic Thickness 1.1 cm 0.6 - 1.0 / 0.6 - 0.9 cm LV Relative Wall Thickness 0.5 RV Internal Dim ED PLAX 2.9 cm LA Systolic Diameter LX 4.3 cm 3.0 - 4.0 / 2.7 - 3.8 cm LA Volume 76.1 cm??? 18 - 58 / 22 - 52 cm??? LA Volume Index 23.6 cm???/m??? 16 - 28 cm???/m??? M-MODE Aortic Root Diameter MM 3.3 cm AV Cusp Separation MM 1.6 cm DOPPLER AV Peak Velocity 178.2 cm/s AV Peak Gradient 12.7 mmHg AV Mean Velocity 131.9 cm/s AV Mean Gradient 7.5 mmHg AV Velocity Time Integral 36.5 cm MV Area PHT 3.7 cm??? MV Deceleration Time 215.3 ms TR Peak Velocity 246.3 cm/s TR Peak Gradient 24.3 mmHg Right Ventricular Systolic Press 29.3 mmHg FINDINGS Left Ventricle Left ventricular ejection fraction is estimated at 50 %. Left ventricular cavity size normal. Mildly increased septal wall thickness. Mildly increased posterior wall thickness. No obvious regional wall motion abnormalities. Right Ventricle Normal right ventricular size. Right ventricular systolic pressure within normal limits. Right Atrium Normal right atrial size. No right atrial thrombus or mass seen. Left Atrium Mildly increased left atrial diameter. Severely increased left atrial volume. Mildly increased left atrial area. No left atrial thrombus or mass present. Mitral Valve Mitral valve thickened. Mild mitral annular calcification. No mitral stenosis, regurgitation or prolapse. Aortic Valve Trileaflet aortic valve. No aortic valve stenosis or regurgitation. Tricuspid Valve Structurally normal tricuspid valve. Mild tricuspid regurgitation. Pulmonic Valve Pulmonic valve not well visualized. No pulmonic regurgitation. Pericardium No pericardial effusion. Aorta Normal size aortic root and proximal ascending aorta. CONCLUSIONS Technically difficult study for interpretation The endocardium was not well-visualized Probably low normal LV systolic function with EF at 50% Poorly visualized intracardiac valves Aortic sclerosis Previewed by: Dr. Miah Goldsmith MD (Electronically Signed) Final Date: 15 June 2025 08:48
--- NOTE | 2025-06-15 09:57 | P.CONS ---
History of Present Illness - Reason for Consult Consult date: 06/15/25 wound care - History of Present Illness This is a 70-year-old patient being seen on 3 S. for nonhealing ulcerations Posterior bilateral thighs. Patient states that she has excoriation and skin breakdown often. Does have discomfort to the site. Patient has skin tears noted to posterior bilateral thighs measuring approximately 0.1 x 4 limited to skin breakdown. Patient does have maceration and irritation to skin folds to the bilateral lower extremities and pannus. Patient denies any significant past medical history. Review Of Systems: Constitutional: No fever, no chills, no night sweats. No weight change. No weakness, fatigue or lethargy. No daytime sleepiness. Integumentary:reports wounds, no lesions. No rash or pruritus. No unusual bruising. No change in hair or nails. Physical exam: General Appearance: Alert, cooperative, no distress, appears stated age. Skin: See HPI all other Skin color, texture, tugor normal, no rashes or lesions. Neurologic: Alert oriented x3 Assessment: 1. Nonpressure ulceration right thigh limited to skin breakdown 2. Nonpressure ulceration left thigh limited to skin breakdown 3. Obesity Plan: 1. Continue to utilize Insta dry in skin folds. Utilizing barrier cream to bilateral posterior thighs daily and as needed. Discussed with patient the importance of avoiding shearing. Patient verbalized understanding. Thank for the consultation any questions please contact the wound care center DNP note has been reviewed and discussed with Dr. Mullen and the impression and plan of care has been directed as dictated. Past Medical History Past Medical History: No Reported History Additional Past Medical History / Comment(s): cataract surgery, 2 sections History of Any Multi-Drug Resistant Organisms: None Reported Past Surgical History: Section, Tubal Ligation Additional Past Surgical History / Comment(s): Bilateral cataract surgery Past Anesthesia/Blood Transfusion Reactions: No Reported Reaction Past Psychological History: Anxiety Smoking Status: Never smoker Past Alcohol Use History: None Reported Past Drug Use History: None Reported - Past Family History Mother Family Medical History: Cancer Additional Family Medical History / Comment(s): mother- pancreatic cancer Medications and Allergies Home Medications Medication Instructions Recorded Confirmed Type No Known Home Medications 06/14/25 06/14/25 History Allergies Allergy/AdvReac Type Severity Reaction Status Date / Time No Known Allergies Allergy Verified 06/14/25 10:14 Physical Exam Vitals: Vital Signs Temp Pulse Pulse Resp BP BP Pulse Ox 06/15/25 04:00 97.8 F 82 94/60 94 L 06/15/25 00:00 97.4 F L 80 14 96/63 95 06/14/25 20:00 98.0 F 91 94/60 95 06/14/25 16:00 98.6 F 95 16 91/46 06/14/25 14:47 97.5 F L 99 20 97/85 97 06/14/25 14:00 16 06/14/25 13:47 101 H 20 105/52 97 06/14/25 13:00 101 H 20 90/45 94 L 06/14/25 12:07 98.5 F 86 14 94/56 98 06/14/25 10:16 110 H 20 100/39 97 Intake and Output 06/14/25 06/15/25 06/15/25 22:59 06:59 14:59 Intake Total 0 Output Total 200 700 Balance -200 -700 Intake: Oral 0 Output: Urine 200 700 Other: Voiding Method External Catheter External Catheter Weight 201.5 kg Results CBC & Chem 7: 06/15/25 06:41 06/15/25 05:48 Labs: Abnormal Lab Results - Last 24 Hours (Table) 06/14/25 06/14/25 06/14/25 Range/Units 10:00 10:00 10:00 WBC 28.80 H (4.50-10.00) 10*3/uL RBC 3.52 L (4.10-5.20) 10*6/uL Hgb 11.4 L (12.0-15.0) g/dL Hct 33.8 L (37.2-46.3) % MCH 32.4 H (27.0-32.0) pg Immature Gran # 0.15 H (0.00-0.04) 10*3/uL Neutrophils # (1.80-7.70) 10*3/uL Neutrophils # (Manual) 23.90 H (1.3-7.7) k/uL Monocytes # (0.20-1.00) 10*3/uL Monocytes # (Manual) 1.44 H (0-1.0) k/uL Basophils # (0.00-0.10) 10*3/uL Potassium 3.4 L (3.5-5.1) mmol/L BUN 57 H (7-17) mg/dL Creatinine 2.15 H (0.52-1.04) mg/dL Glucose (74-99) mg/dL Calcium 8.1 L (8.4-10.2) mg/dL TIBC (228-460) UG/DL Transferrin (204.0-354.0) mg/dL Ferritin (10.0-291.0) ng/mL Total Bilirubin 2.3 H (0.2-1.3) mg/dL AST 142 H (14-36) U/L ALT 211 H (4-34) U/L Alkaline Phosphatase 200 H (38-126) U/L Troponin I 0.123 H* (0.000-0.034) ng/mL Total Protein 6.0 L (6.3-8.2) g/dL Albumin 2.9 L (3.5-5.0) g/dL HDL Cholesterol (40.00-60.00) mg/dL Vitamin B12 (200.0-944.0) pg/mL Urine Appearance (Clear) Urine Protein (Negative) Urine Blood (Negative) Ur Leukocyte Esterase (Negative) Urine WBC (0-5) /hpf Urine Bacteria (None) /hpf Urine Mucus (None) /hpf 06/14/25 06/14/25 06/14/25 Range/Units 13:10 13:10 13:43 WBC (4.50-10.00) 10*3/uL RBC (4.10-5.20) 10*6/uL Hgb (12.0-15.0) g/dL Hct (37.2-46.3) % MCH (27.0-32.0) pg Immature Gran # (0.00-0.04) 10*3/uL Neutrophils # (1.80-7.70) 10*3/uL Neutrophils # (Manual) (1.3-7.7) k/uL Monocytes # (0.20-1.00) 10*3/uL Monocytes # (Manual) (0-1.0) k/uL Basophils # (0.00-0.10) 10*3/uL Potassium (3.5-5.1) mmol/L BUN (7-17) mg/dL Creatinine (0.52-1.04) mg/dL Glucose (74-99) mg/dL Calcium (8.4-10.2) mg/dL TIBC 179 L (228-460) UG/DL Transferrin 128.0 L (204.0-354.0) mg/dL Ferritin 3275.0 H (10.0-291.0) ng/mL Total Bilirubin (0.2-1.3) mg/dL AST (14-36) U/L ALT (4-34) U/L Alkaline Phosphatase (38-126) U/L Troponin I 0.100 H* (0.000-0.034) ng/mL Total Protein (6.3-8.2) g/dL Albumin (3.5-5.0) g/dL HDL Cholesterol 33.20 L (40.00-60.00) mg/dL Vitamin B12 2121.0 H (200.0-944.0) pg/mL Urine Appearance Cloudy H (Clear) Urine Protein Trace H (Negative) Urine Blood Small H (Negative) Ur Leukocyte Esterase Large H (Negative) Urine WBC 28 H (0-5) /hpf Urine Bacteria Occasional H (None) /hpf Urine Mucus Rare H (None) /hpf 06/14/25 06/15/25 06/15/25 Range/Units 16:20 05:48 06:41 WBC 18.72 H (4.50-10.00) 10*3/uL RBC 3.58 L (4.10-5.20) 10*6/uL Hgb 11.2 L (12.0-15.0) g/dL Hct 34.6 L (37.2-46.3) % MCH (27.0-32.0) pg Immature Gran # 0.18 H (0.00-0.04) 10*3/uL Neutrophils # 14.17 H (1.80-7.70) 10*3/uL Neutrophils # (Manual) (1.3-7.7) k/uL Monocytes # 1.25 H (0.20-1.00) 10*3/uL Monocytes # (Manual) (0-1.0) k/uL Basophils # 0.11 H (0.00-0.10) 10*3/uL Potassium (3.5-5.1) mmol/L BUN 52 H (7-17) mg/dL Creatinine 1.68 H (0.52-1.04) mg/dL Glucose 56 L (74-99) mg/dL Calcium (8.4-10.2) mg/dL TIBC (228-460) UG/DL Transferrin (204.0-354.0) mg/dL Ferritin (10.0-291.0) ng/mL Total Bilirubin 1.5 H (0.2-1.3) mg/dL AST 83 H (14-36) U/L ALT 167 H (4-34) U/L Alkaline Phosphatase 213 H (38-126) U/L Troponin I 0.084 H* (0.000-0.034) ng/mL Total Protein 6.2 L (6.3-8.2) g/dL Albumin 3.0 L (3.5-5.0) g/dL HDL Cholesterol (40.00-60.00) mg/dL Vitamin B12 (200.0-944.0) pg/mL Urine Appearance (Clear) Urine Protein (Negative) Urine Blood (Negative) Ur Leukocyte Esterase (Negative) Urine WBC (0-5) /hpf Urine Bacteria (None) /hpf Urine Mucus (None) /hpf Assessment and Plan (1) Non-pressure chronic ulcer right thigh, limited to breakdown skin Current Visit: Yes Status: Acute Code(s): L97.111 - NON-PRS CHRONIC ULCER OF RIGHT THIGH LIMITED TO BRKDWN SKIN SNOMED Code(s): 70745363585079274 (2) 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
--- NOTE | 2025-06-15 10:41 | P.PN ---
Subjective Progress Note Date: 06/15/25 Patient is a 70-year-old female with no significant past medical history was transferred from [place] via EMS to [facility] for further management of new onset A-fib with the RVR. Patient reports that she presented to the outside facility yesterday due to generalized weakness, fatigue and nausea and vomiting ongoing for 3 days. Patient reports that yesterday she could barely walk and take shower due to fatigue and tiredness. Denies chest pain or shortness of breath. Patient reports that she has been trying keto diet to lose weight. Patient reports no history of coronary artery disease or arrhythmias. 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 Patient is currently not on any medication including medication for blood pressure or diabetes or any blood thinner. She is a non-smoker and no drinker and denies use of illicit drugs. Patient reports that she is too embarrassed to go to doctors due to her weight and have not seen a doctor for many years. Patient denies chest pain, shortness of breath, orthopnea, PND, dizziness, lightheadedness, worsening swelling of the legs, cough, dysuria, urgency or frequency of urination, diarrhea or constipation. Her troponin at outside facility was 0.8 and BNP 13,500 Labs and data on this admission: WBC 28, hemoglobin 11.4, platelet count 141, sodium 138, potassium 3.4, BUN 57, creatinine 2.15, AST 142, ALT 211, ALP 200 Troponin I 0.12 EKG shows A-fib with RVR 06/15/2025: Patient seen and examined at the bedside. No acute events overnight. Patient denies chest pain, shortness of breath, abdominal pain, nausea, vomiting, dysuria. WBC 18.7, hemoglobin 11.2, sodium 139, potassium 4.0, BUN 52, creatinine 1.68, ferritin 3275 Cardizem drip has been discontinued. Patient is currently on Lopressor for rate control and Eliquis for anticoagulation. Physical examination: Vital signs reviewed General: non toxic, no distress, appears at stated age, morbidly obese Derm: Warm erythematous nonpurulent lesions on lower extremities especially in skin fold and on bilateral frank Head: atraumatic, normocephalic, symmetric Eyes: EOMI, no lid lag, anicteric sclera, pupils equal round reactive to light ENT: Nose and ears atraumatic Neck: No cervical lymphadenopathy, trachea midline, supple Mouth: no lip lesion, mucus membranes moist Cardiovascular: S1S2 irregular, systolic murmur, positive dorsalis pedis pulse bilateral, 1+ bilateral pitting edema Lungs: CTA bilateral, no rhonchi, no rales, no accessory muscle use Abdominal: soft, nontender to palpation, no guarding Ext: muscle strength 5 out of 5 in all 4 extremities grossly, no gross muscle atrophy, no contractures, Neuro: CN II-XI grossly intact, no gross focal neuro deficits Psych: Alert, oriented, appropriate affect Assessment: #A-fib with RVR, new onset versus paroxysmal versus permanent #Elevated troponin, likely type II NSTEMI due to oxygen supply/demand mismatch #Sepsis secondary to infection, likely source is lower extremity cellulitis versus abdominal # Morbid obesity #Transaminitis, improving #Prerenal azotemia, improving #Normocytic anemia #Generalized weakness Plan: IV Cardizem has been discontinued Continue with Lopressor 25 mg twice daily Eliquis 2.5 mg twice daily for anticoagulation, will uptitrate to 5 mg twice daily once kidney function improves Continue monitor kidney functions and replete electrolytes Very elevated ferritin level, rule out hemochromatosis BMP tomorrow a.m. Continue IV antibiotics as per ID Rest of management as per primary Dictation was produced using [employer] dictation software. Please excuse any gramm atical, word or spelling errors. I signature Ed Lopes MD PGY 2 Objective - Vital Signs Vital signs: Vital Signs Temp 97.8 F 06/15/25 04:00 Pulse 82 06/15/25 04:00 Resp 14 06/15/25 00:00 BP 94/60 06/15/25 04:00 Pulse Ox 94 L 06/15/25 04:00 FiO2 Intake & Output 06/14/25 06/15/25 06/15/25 18:59 06:59 18:59 Intake Total 0 Output Total 150 900 Balance -150 -900 Weight 197.5 kg 201.5 kg Intake: Oral 0 Output: Urine 150 900 Other: Voiding Method External Catheter External Catheter - Labs CBC & Chem 7: 06/15/25 06:41 06/15/25 05:48 Labs: Abnormal Lab Results - Last 24 Hours (Table) 06/14/25 06/14/25 06/14/25 Range/Units 10:00 10:00 10:00 WBC 28.80 H (4.50-10.00) 10*3/uL RBC 3.52 L (4.10-5.20) 10*6/uL Hgb 11.4 L (12.0-15.0) g/dL Hct 33.8 L (37.2-46.3) % MCH 32.4 H (27.0-32.0) pg Immature Gran # 0.15 H (0.00-0.04) 10*3/uL Neutrophils # (1.80-7.70) 10*3/uL Neutrophils # (Manual) 23.90 H (1.3-7.7) k/uL Monocytes # (0.20-1.00) 10*3/uL Monocytes # (Manual) 1.44 H (0-1.0) k/uL Basophils # (0.00-0.10) 10*3/uL Potassium 3.4 L (3.5-5.1) mmol/L BUN 57 H (7-17) mg/dL Creatinine 2.15 H (0.52-1.04) mg/dL Glucose (74-99) mg/dL Calcium 8.1 L (8.4-10.2) mg/dL TIBC (228-460) UG/DL Transferrin (204.0-354.0) mg/dL Ferritin (10.0-291.0) ng/mL Total Bilirubin 2.3 H (0.2-1.3) mg/dL AST 142 H (14-36) U/L ALT 211 H (4-34) U/L Alkaline Phosphatase 200 H (38-126) U/L Troponin I 0.123 H* (0.000-0.034) ng/mL Total Protein 6.0 L (6.3-8.2) g/dL Albumin 2.9 L (3.5-5.0) g/dL HDL Cholesterol (40.00-60.00) mg/dL Vitamin B12 (200.0-944.0) pg/mL Urine Appearance (Clear) Urine Protein (Negative) Urine Blood (Negative) Ur Leukocyte Esterase (Negative) Urine WBC (0-5) /hpf Urine Bacteria (None) /hpf Urine Mucus (None) /hpf 06/14/25 06/14/25 06/14/25 Range/Units 13:10 13:10 13:43 WBC (4.50-10.00) 10*3/uL RBC (4.10-5.20) 10*6/uL Hgb (12.0-15.0) g/dL Hct (37.2-46.3) % MCH (27.0-32.0) pg Immature Gran # (0.00-0.04) 10*3/uL Neutrophils # (1.80-7.70) 10*3/uL Neutrophils # (Manual) (1.3-7.7) k/uL Monocytes # (0.20-1.00) 10*3/uL Monocytes # (Manual) (0-1.0) k/uL Basophils # (0.00-0.10) 10*3/uL Potassium (3.5-5.1) mmol/L BUN (7-17) mg/dL Creatinine (0.52-1.04) mg/dL Glucose (74-99) mg/dL Calcium (8.4-10.2) mg/dL TIBC 179 L (228-460) UG/DL Transferrin 128.0 L (204.0-354.0) mg/dL Ferritin 3275.0 H (10.0-291.0) ng/mL Total Bilirubin (0.2-1.3) mg/dL AST (14-36) U/L ALT (4-34) U/L Alkaline Phosphatase (38-126) U/L Troponin I 0.100 H* (0.000-0.034) ng/mL Total Protein (6.3-8.2) g/dL Albumin (3.5-5.0) g/dL HDL Cholesterol 33.20 L (40.00-60.00) mg/dL Vitamin B12 2121.0 H (200.0-944.0) pg/mL Urine Appearance Cloudy H (Clear) Urine Protein Trace H (Negative) Urine Blood Small H (Negative) Ur Leukocyte Esterase Large H (Negative) Urine WBC 28 H (0-5) /hpf Urine Bacteria Occasional H (None) /hpf Urine Mucus Rare H (None) /hpf 06/14/25 06/15/25 06/15/25 Range/Units 16:20 05:48 06:41 WBC 18.72 H (4.50-10.00) 10*3/uL RBC 3.58 L (4.10-5.20) 10*6/uL Hgb 11.2 L (12.0-15.0) g/dL Hct 34.6 L (37.2-46.3) % MCH (27.0-32.0) pg Immature Gran # 0.18 H (0.00-0.04) 10*3/uL Neutrophils # 14.17 H (1.80-7.70) 10*3/uL Neutrophils # (Manual) (1.3-7.7) k/uL Monocytes # 1.25 H (0.20-1.00) 10*3/uL Monocytes # (Manual) (0-1.0) k/uL Basophils # 0.11 H (0.00-0.10) 10*3/uL Potassium (3.5-5.1) mmol/L BUN 52 H (7-17) mg/dL Creatinine 1.68 H (0.52-1.04) mg/dL Glucose 56 L (74-99) mg/dL Calcium (8.4-10.2) mg/dL TIBC (228-460) UG/DL Transferrin (204.0-354.0) mg/dL Ferritin (10.0-291.0) ng/mL Total Bilirubin 1.5 H (0.2-1.3) mg/dL AST 83 H (14-36) U/L ALT 167 H (4-34) U/L Alkaline Phosphatase 213 H (38-126) U/L Troponin I 0.084 H* (0.000-0.034) ng/mL Total Protein 6.2 L (6.3-8.2) g/dL Albumin 3.0 L (3.5-5.0) g/dL HDL Cholesterol (40.00-60.00) mg/dL Vitamin B12 (200.0-944.0) pg/mL Urine Appearance (Clear) Urine Protein (Negative) Urine Blood (Negative) Ur Leukocyte Esterase (Negative) Urine WBC (0-5) /hpf Urine Bacteria (None) /hpf Urine Mucus (None) /hpf
--- NOTE | 2025-06-15 15:17 | P.PN ---
Subjective Progress Note Date: 06/15/25 Principal diagnosis: Reason for follow-up is UTI/left leg cellulitis Patient is a 70-year-old female with a past medical history significant for anxiety morbid obesity did have a chronic swelling lower extremity has been transfer from [facility] for evaluation and treatment of new onset atrial fibrillation with RVR patient presented to the hospital presenting concern of generalized weakness fatigue also have the urinary symptoms concerning for UTI and there was concern for left leg cellulitis. On today's evaluation that is 06/15/2025, the patient continues to be afebrile, the patient is on room air and breathing comfortably, the Pt denies having any c hest pain or cough, the patient denies having any abdominal pain no vomiting or any diarrhea and denies pain to the left lower extremity. Patient white count is down to 18.72, creatinine is 1.68 liver enzymes remains to be elevated though trending down abdominal ultrasound did not show any gallbladder disease Objective - Vital Signs Vital signs: Vital Signs Temp 98.1 F 06/15/25 10:10 Pulse 93 06/15/25 11:40 Resp 18 06/15/25 11:40 BP 103/65 06/15/25 11:40 Pulse Ox 97 06/15/25 11:40 FiO2 Intake & Output 06/14/25 06/15/25 06/15/25 18:59 06:59 18:59 Intake Total 0 50 Output Total 150 900 Balance -150 -900 50 Weight 197.5 kg 201.5 kg Intake: Oral 0 50 Output: Urine 150 900 Other: Voiding Method External Catheter External Catheter External Catheter - Exam GENERAL DESCRIPTION: An elderly female lying in bed in no distress RESPIRATORY SYSTEM: Unlabored breathing , decreased breath sounds at bases HEART: S1 S2 regular rate and rhythm , ABDOMEN: Soft , no tenderness EXTREMITIES: Bilateral lower extremity swelling with some redness to the left leg - Labs CBC & Chem 7: 06/15/25 06:41 06/15/25 05:48 Labs: Abnormal Lab Results - Last 24 Hours (Table) 06/14/25 06/14/25 06/15/25 Range/Units 13:10 16:20 05:48 WBC (4.50-10.00) 10*3/uL RBC (4.10-5.20) 10*6/uL Hgb (12.0-15.0) g/dL Hct (37.2-46.3) % Immature Gran # (0.00-0.04) 10*3/uL Neutrophils # (1.80-7.70) 10*3/uL Monocytes # (0.20-1.00) 10*3/uL Basophils # (0.00-0.10) 10*3/uL BUN 52 H (7-17) mg/dL Creatinine 1.68 H (0.52-1.04) mg/dL Glucose 56 L (74-99) mg/dL TIBC 179 L (228-460) UG/DL Transferrin 128.0 L (204.0-354.0) mg/dL Ferritin 3275.0 H (10.0-291.0) ng/mL Total Bilirubin 1.5 H (0.2-1.3) mg/dL AST 83 H (14-36) U/L ALT 167 H (4-34) U/L Alkaline Phosphatase 213 H (38-126) U/L Troponin I 0.084 H* (0.000-0.034) ng/mL Total Protein 6.2 L (6.3-8.2) g/dL Albumin 3.0 L (3.5-5.0) g/dL HDL Cholesterol 33.20 L (40.00-60.00) mg/dL Vitamin B12 2121.0 H (200.0-944.0) pg/mL 06/15/ Range/Units 06:41 WBC 18.72 H (4.50-10.00) 10*3/uL RBC 3.58 L (4.10-5.20) 10*6/uL Hgb 11.2 L (12.0-15.0) g/dL Hct 34.6 L (37.2-46.3) % Immature Gran # 0.18 H (0.00-0.04) 10*3/uL Neutrophils # 14.17 H (1.80-7.70) 10*3/uL Monocytes # 1.25 H (0.20-1.00) 10*3/uL Basophils # 0.11 H (0.00-0.10) 10*3/uL BUN (7-17) mg/dL Creatinine (0.52-1.04) mg/dL Glucose (74-99) mg/dL TIBC (228-460) UG/DL Transferrin (204.0-354.0) mg/dL Ferritin (10.0-291.0) ng/mL Total Bilirubin (0.2-1.3) mg/dL AST (14-36) U/L ALT (4-34) U/L Alkaline Phosphatase (38-126) U/L Troponin I (0.000-0.034) ng/mL Total Protein (6.3-8.2) g/dL Albumin (3.5-5.0) g/dL HDL Cholesterol (40.00-60.00) mg/dL Vitamin B12 (200.0-944.0) pg/mL Assessment and Plan (1) Leukocytosis Current Visit: Yes Status: Acute Code(s): D72.829 - ELEVATED WHITE BLOOD CELL COUNT, UNSPECIFIED SNOMED Code(s): 320135875 (2) Left leg cellulitis Current Visit: Yes Status: Acute Code(s): L03.116 - CELLULITIS OF LEFT LOWER LIMB SNOMED Code(s): 20430989821326224 (3) Elevated liver enzymes Current Visit: Yes Status: Acute Code(s): R74.8 - ABNORMAL LEVELS OF OTHER SERUM ENZYMES SNOMED Code(s): 906950533 (4) UTI (urinary tract infection) Current Visit: Yes Status: Acute Code(s): N39.0 - URINARY TRACT INFECTION, SITE NOT SPECIFIED SNOMED Code(s): 01091249 Plan: 1patient presented hospital with generalized weakness did have associated nausea and vomiting patient noted to have a significant elevated white count source is likely multifactorial with predominantly GI symptom and also noted to have elevated liver enzymes question of possible gallbladder disease. 2patient did have minimal erythema to the left lower extremity cellulitis 3patient did have cloudy urine positive UA and did have urinary symptoms of burning on arrival to the [facility] improved with Rocephin likely Rocephin sensitive pathogen 4ultrasound of the right upper quadrant area did not show any findings of cholecystitis 5-patient white count is trending down to continue with Rocephin while waiting for the culture to finalize Dictation was produced using [employer] software. please excuse any grammatical, word or spelling errors.
[2025-06-15] MEDS: ZINC OXIDE PASTE (Z-GUARD) 1 APPLIC TOPICAL SCH (15:36)
--- NOTE | 2025-06-15 16:42 | P.PN ---
Progress Note - Text Progress Note Date: 06/15/25 Chief Complaint: Tired This is a pleasant 70-year-old patient with no family doctor. She presents feeling unwell. Going on for a few days. Started feeling weak in the legs. Rather tired. Has chronic swelling of lower extremity but not such edema. Denies any chest pain or shortness of breath. She did not vomited 2 days ago. She continued to feel legs feel very weak. To the point of difficulty walking. EKG in the ER showed atrial fibrillation. Rate of 104. Patient placed on IV Cardizem drip. An IV heparin drip. June 15: In bed. Comfortable. Eating fair. No fever. A-fib controlled. Looking for PT OT with view to rehab. retail office manager on board. Discussed with the patient's sister at the bedside. Active Medications Acetaminophen (Acetaminophen Tab 325 Mg Tab) 650 mg PO Q6HR PRN PRN Reason: Mild Pain or Fever > 100.5 Apixaban (Apixaban 5 Mg Tab) 5 mg PO BID [facility]; Protocol Ceftriaxone Sodium 2 gm/ (Sodium Chloride) 50 mls @ 100 mls/hr IVPB Q24H [facility] Metoprolol Tartrate (Metoprolol Tartrate 25 Mg Tab) 25 mg PO BID [facility] Last Admin: 06/15/25 10:20 Dose: 25 mg Naloxone HCl (Naloxone 0.4 Mg/Ml 1 Ml Vial) 0.2 mg IV Q2M PRN PRN Reason: Opioid Reversal Nystatin (Nystatin 100,000 Unit/Gm Powd 15 Gm) 1 applic TOPICAL BID [facility]; Protocol Last Admin: 06/15/25 10:21 Dose: 1 applic Ondansetron HCl (Ondansetron 4 Mg/2 Ml Vial) 4 mg IVP Q8HR PRN PRN Reason: Nausea And Vomiting Petrolatum (Zinc Oxide Paste (Z-Guard) 1 Applic) 1 applic TOPICAL DAILY [facility]; Protocol Last Admin: 06/15/25 15:36 Dose: 1 applic Social history: . Lives with her . Does use a walker. Denies smoking. Denies alcohol. Physical examination: VITAL SIGNS: 98.1, 95, 16, 96 x 58, 98% room air GENERAL: [BMI 70.3, reclining bed awake comfortable EYES: [Pupils equal. Conjunctiva cruz l. HEENT: External appearance of nose and ears normal, oral cavity grossly normal. NECK: JVD not raised; masses not palpable. HEART: First and second heart sounds are normal; nonpitting edema. LUNGS: Respiratory rate increased; decreased breath sounds. ABDOMEN: Soft, nontender, liver spleen not palpable, no masses palpable. PSYCH: Alert and oriented x3; mood and affect cruz l. MUSCULOSKELETAL:No Clubbing/cyanosis;muscles-grossly intact NEUROLOGICAL: Cranial nerves grossly intact; no facial asymmetry, power and sensation grossly intact. INVESTIGATIONS, reviewed in the clinical context: 2D echocardiogram: EF 50%. Renal ultrasound unremarkable June 15: White count 18.7 hemoglobin 11.2 potassium 4 BUN 52 creatinine 1.68 June 14, 2025: White count 28.8 hemoglobin 11.4 platelets 141 sodium 138 potassium 3.4 BUN 57 creatinine 2.15 AST 142 ALT 211 Troponin I 0.123 0.100 0.084 TSH 3.28 UA: Large leukoesterase occasional bacteria. Negative for nitrite EKG tracing personally reviewed by me-atrial fibrillation. Rate 104 PVC. Assessment and plan: - New onset atrial fibrillation with rapid ventricular rate initially. Now rate controlled in the 70s IV Cardizem drip initially. . Lopressor 25 mg twice daily. Eliquis Cardiology following. - Morbid obesity BMI 70.3 Weight loss measures - Chronic gait dysfunction does use a walker at baseline - Chronic lower extremity lymphedema - Acute UTI with cystitis IV ceftriaxone. ID following - Acute medical debility PT OT. - Acute on likely chronic kidney disease possibly stage III likely nephrosclerosis Admission creatinine 2.15. Today 1.68 - Nonpressure ulceration right thigh limited to skin breakdown, nonpressure ulceration left thigh limited to skin breakdown, *Dry and skin folds. Barrier cream.-Wound care following - Full code Care was discussed with patient. Questions answered. - Past Medical History Past Medical History: No Reported History Additional Past Medical History / Comment(s): cataract surgery, 2 sections History of Any Multi-Drug Resistant Organisms: None Reported Past Surgical History: Section, Tubal Ligation Additional Past Surgical History / Comment(s): Bilateral cataract surgery Past Anesthesia/Blood Transfusion Reactions: No Reported Reaction Past Psychological History: Anxiety Smoking Status: Never smoker Past Alcohol Use History: None Reported Past Drug Use History: None Reported
[2025-06-15] MEDS: APIXABAN 5 MG TAB PO SCH (21:23)
[2025-06-16 04:37] LABS: African American GFR (CKD) 52 (>60 ml/min/1.73 sqM); Anion Gap 8 mmol/L; Blood Urea Nitrogen 46 mg/dL (7-17); Calcium 8.8 mg/dL (8.4-10.2); Carbon Dioxide 25 mmol/L (22-30); Chloride 107 mmol/L (98-107); Glucose 74 mg/dL (74-99); Non-African American GFR(CKD) 45 (>60 ml/min/1.73 sqM); Potassium 4.1 mmol/L (3.5-5.1); Sodium 140 mmol/L (137-145)
--- NOTE | 2025-06-16 11:31 | P.PN ---
Subjective Progress Note Date: 06/16/25 Patient is a 70-year-old female with no significant past medical history was transferred from [place] via EMS to [facility] for further management of new onset A-fib with the RVR. Patient reports that she presented to the outside facility yesterday due to generalized weakness, fatigue and nausea and vomiting ongoing for 3 days. Patient reports that yesterday she could barely walk and take shower due to fatigue and tiredness. Denies chest pain or shortness of breath. Patient reports that she has been trying keto diet to lose weight. Patient reports no history of coronary artery disease or arrhythmias. She is not established with green end man. Patient is currently not on any medication including medication for blood pressure or diabetes or any blood thinner. She is a non-smoker and no drinker and denies use of illicit drugs. Patient reports that she is too embarrassed to go to doctors due to her weight and have not seen a doctor for many years. Patient denies chest pain, shortness of breath, orthopnea, PND, dizziness, lightheadedness, worsening swelling of the legs, cough, dysuria, urgency or frequency of urination, diarrhea or constipation. Her troponin at outside facility was 0.8 and BNP 13,500 Echocardiogram with Doppler study showed low normal LV systolic function with an ejection fraction of 50%, technically difficult study 06/16/2025 Patient was seen and examined resting comfortably in bed. She is overall feeling better. She remains in atrial fibrillation with a controlled heart rate. Renal function shows improvement today. She remains on Eliquis 2.5 mg p.o. twice daily. Physical examination: Vital signs reviewed General: No distress, appears at stated age, morbidly obese Head: atraumatic, normocephalic, symmetric ENT: Nose and ears atraumatic Neck: No cervical lymphadenopathy, trachea midline, supple Cardiovascular: S1S2 irregular, systolic murmur, positive dorsalis pedis pulse bilateral, 1+ bilateral pitting edema Lungs: CTA bilateral, no rhonchi, no rales, no accessory muscle use Abdominal: soft, nontender to palpation, no guarding Neuro: Awake, alert, oriented x 4 Assessment: #A-fib with RVR, new onset versus paroxysmal versus permanent, currently rate controlled #Elevated troponin, likely type II NSTEMI due to oxygen supply/demand mismatch #Sepsis secondary to infection, likely source is lower extremity cellulitis versus abdominal # Morbid obesity #Transaminitis, no repeat liver enzymes drawn this morning #Prerenal azotemia, improving #Normocytic anemia #Generalized weakness Plan: From cardiology's perspective we will increase Eliquis to 5 mg p.o. twice daily. Continue metoprolol tartrate 25 mg p.o. twice daily. We will check liver enzymes. Recheck BNP. We will continue to follow the patient and provide further recommendations accordingly. TELEVISION PRODUCTION ASSISTANT note has been reviewed, I agree with a documented findings and plan of care. Patient was seen and examined. Objective - Vital Signs Vital signs: Vital Signs Temp 98.1 F 06/16/25 06:53 Pulse 90 06/16/25 06:53 Resp 18 06/16/25 06:53 BP 109/73 06/16/25 06:53 Pulse Ox 98 06/16/25 06:53 FiO2 Intake & Output 06/15/25 06/16/25 06/16/25 18:59 06:59 18:59 Intake Total 50 Output Total 650 Balance -600 Intake: Oral 50 Output: Urine 650 Other: Voiding Method External Catheter External Catheter # Voids 1 - Labs CBC & Chem 7: 06/15/25 06:41 06/16/25 03:27 Labs: Abnormal Lab Results - Last 24 Hours (Table) 06/16/25 Range/Units 03:27 BUN 46 H (7-17) mg/dL Creatinine 1.23 H (0.52-1.04) mg/dL Microbiology - Last 24 Hours (Table) 06/14/25 13:43 Urine Culture - Final Urine,Voided
[2025-06-16 13:02] LABS: ALT 106.0 U/L (4-34); AST 45.0 U/L (14-36); Alkaline Phosphatase 222.0 U/L (38-126)
[2025-06-16 13:11] LABS: NT-Pro-B-Type Natriuretic Pept 6650.0 pg/mL
[2025-06-16 13:16] LABS: HCT 37.3 % (37.2-46.3); HGB 11.9 g/dL (12.0-15.0); MCH 31.4 pg (27.0-32.0); MCHC 31.9 g/dL (32.0-37.0); MCV 98.4 fL (80.0-97.0); Platelet Count 156 10*3/uL (140-440); RBC 3.79 10*6/uL (4.10-5.20); RDW 14.2 % (11.5-14.5); WBC 7.59 10*3/uL (4.50-10.00)
--- NOTE | 2025-06-16 15:00 | P.PN ---
Subjective Progress Note Date: 06/16/25 Principal diagnosis: Reason for follow-up is UTI/left leg cellulitis Patient is a 70-year-old female with a past medical history significant for anxiety morbid obesity did have a chronic swelling lower extremity has been transfer from [facility] for evaluation and treatment of new onset atrial fibrillation with RVR patient presented to the hospital presenting concern of generalized weakness fatigue also have the urinary symptoms concerning for UTI and there was concern for left leg cellulitis. On today's evaluation that is 06/16/2025, patient did have a temperature of 98 F this morning and denies having any chills, patient is on room air and breathing comfortably no chest pain or cough, the patient did not have any nausea vomiting abdominal pain or any diarrhea mention feeling slightly better. Patient white count normalized to 7.59 liver isms also improved cultures currently pending Objective - Vital Signs Vital signs: Vital Signs Temp 98.1 F 06/16/25 06:53 Pulse 90 06/16/25 06:53 Resp 18 06/16/25 06:53 BP 109/73 06/16/25 06:53 Pulse Ox 98 06/16/25 06:53 FiO2 Intake & Output 06/15/25 06/16/25 06/16/25 18:59 06:59 18:59 Intake Total 50 Output Total 650 Balance -600 Weight 201.5 kg Intake: Oral 50 Output: Urine 650 Other: Voiding Method External Catheter External Catheter External Catheter # Voids 1 - Exam GENERAL DESCRIPTION: An elderly female lying in bed in no distress RESPIRATORY SYSTEM: Unlabored breathing , decreased breath sounds at bases HEART: S1 S2 regular rate and rhythm , ABDOMEN: Soft , no tenderness EXTREMITIES: Bilateral lower extremity swelling with some redness to the left leg - Labs CBC & Chem 7: 06/16/25 12:11 06/16/25 03:27 Labs: Abnormal Lab Results - Last 24 Hours (Table) 06/16/25 06/16/25 06/16/25 Range/Units 03:27 12:11 12:11 RBC 3.79 L (4.10-5.20) 10*6/uL Hgb 11.9 L (12.0-15.0) g/dL MCV 98.4 H (80.0-97.0) fL MCHC 31.9 L (32.0-37.0) g/dL BUN 46 H (7-17) mg/dL Creatinine 1.23 H (0.52-1.04) mg/dL AST 45 H (14-36) U/L ALT 106 H (4-34) U/L Alkaline Phosphatase 222 H (38-126) U/L Microbiology - Last 24 Hours (Table) 06/14/25 13:43 Urine Culture - Final Urine,Voided Assessment and Plan (1) Leukocytosis Current Visit: Yes Status: Acute Code(s): D72.829 - ELEVATED WHITE BLOOD CELL COUNT, UNSPECIFIED SNOMED Code(s): 603394487 (2) Left leg cellulitis Current Visit: Yes Status: Acute Code(s): L03.116 - CELLULITIS OF LEFT LOWER LIMB SNOMED Code(s): 34563784084611629 (3) Elevated liver enzymes Current Visit: Yes Status: Acute Code(s): R74.8 - ABNORMAL LEVELS OF OTHER SERUM ENZYMES SNOMED Code(s): 598893038 (4) UTI (urinary tract infection) Current Visit: Yes Status: Acute Code(s): N39.0 - URINARY TRACT INFECTION, SITE NOT SPECIFIED SNOMED Code(s): 64275365 Plan: 1patient presented hospital with generalized weakness did have associated nausea and vomiting patient noted to have a significant elevated white count source is likely multifactorial with predominantly GI symptom and also noted to have elevated liver enzymes question of possible gallbladder disease. 2patient did have minimal erythema to the left lower extremity cellulitis 3patient did have cloudy urine positive UA and did have urinary symptoms of burning on arrival to the [facility] improved with Rocephin likely Rocephin sensitive pathogen 4ultrasound of the right upper quadrant area did not show any findings of cholecystitis 5-patient white count has normalized keeping in mind improvement on Rocephin to continue while inpatient will transition to Ceftin on discharge Dictation was produced using [employer] dictation software. please excuse any grammatical, word or spelling errors. Time with Patient: Less than 30
[2025-06-16] MEDS: DICLOFENAC SODIUM GEL 100 GM TUBE TOPICAL PRN (15:48)
--- NOTE | 2025-06-16 18:14 | P.PN ---
Progress Note - Text Progress Note Date: 06/16/25 Chief Complaint: Tired This is a pleasant 70-year-old patient with no family doctor. She presents feeling unwell. Going on for a few days. Started feeling weak in the legs. Rather tired. Has chronic swelling of lower extremity but not such edema. Denies any chest pain or shortness of breath. She did not vomited 2 days ago. She continued to feel legs feel very weak. To the point of difficulty walking. EKG in the ER showed atrial fibrillation. Rate of 104. Patient placed on IV Cardizem drip. An IV heparin drip. June 15: In bed. Comfortable. Eating fair. No fever. A-fib controlled. Looking for PT OT with view to rehab. manager market research on board. Discussed with the patient's sister at the bedside. June 16: Resting. Remains in A-fib. Controlled. Pending evaluation for rehab. Eating fair. On IV ceftriaxone for possible UTI per ID. Active Medications Acetaminophen (Acetaminophen Tab 325 Mg Tab) 650 mg PO Q6HR PRN PRN Reason: Mild Pain or Fever > 100.5 Apixaban (Apixaban 5 Mg Tab) 5 mg PO BID [facility]; Protocol Last Admin: 06/16/25 08:39 Dose: 5 mg Diclofenac Sodium (Diclofenac Sodium Gel 100 Gm Tube) 4 gm TOPICAL BID PRN; Protocol PRN Reason: Pain Last Admin: 06/16/25 15:48 Dose: 4 gm Ceftriaxone Sodium 2 gm/ (Sodium Chloride) 50 mls @ 100 mls/hr IVPB Q24H [facility] Last Admin: 06/16/25 08:39 Dose: 100 mls/hr Metoprolol Tartrate (Metoprolol Tartrate 25 Mg Tab) 25 mg PO BID [facility] Last Admin: 06/16/25 08:39 Dose: 25 mg Naloxone HCl (Naloxone 0.4 Mg/Ml 1 Ml Vial) 0.2 mg IV Q2M PRN PRN Reason: Opioid Reversal Nystatin (Nystatin 100,000 Unit/Gm Powd 15 Gm) 1 applic TOPICAL BID [facility]; Protocol Last Admin: 06/16/25 08:39 Dose: 1 applic Ondansetron HCl (Ondansetron 4 Mg/2 Ml Vial) 4 mg IVP Q8HR PRN PRN Reason: Nausea And Vomiting Petrolatum (Zinc Oxide Paste (Z-Guard) 1 Applic) 1 applic TOPICAL DAILY [facility]; Protocol Last Admin: 06/16/25 08:40 Dose: 1 applic Social history: . Lives with her . Does use a walker. Denies smoking. Denies alcohol. Physical examination: VITAL SIGNS: 98, 86, 18, 107 x 68, 97% room air GENERAL: [BMI 70.3, resting comfortable EYES: [Pupils equal. Conjunctiva cruz l. HEENT: External appearance of nose and ears normal, oral cavity grossly normal. NECK: JVD not raised; masses not palpable. HEART: First and second heart sounds are normal; nonpitting edema. LUNGS: Respiratory rate increased; decreased breath sounds. ABDOMEN: Soft, nontender, liver spleen not palpable, no masses palpable. PSYCH: Alert and oriented x3; mood and affect cruz l. MUSCULOSKELETAL:No Clubbing/cyanosis;muscles-grossly intact NEUROLOGICAL: Cranial nerves grossly intact; no facial asymmetry, power and sensation grossly intact. INVESTIGATIONS, reviewed in the clinical context: June 16: White count 7.5 hemoglobin 11.9 creatinine 1.23 AST 106 ALT 222 2D echocardiogram: EF 50%. Renal ultrasound unremarkable June 15: White count 18.7 hemoglobin 11.2 potassium 4 BUN 52 creatinine 1.68 June 14, 2025: White count 28.8 hemoglobin 11.4 platelets 141 sodium 138 potassium 3.4 BUN 57 creatinine 2.15 AST 142 ALT 211 Troponin I 0.123 0.100 0.084 TSH 3.28 UA: Large leukoesterase occasional bacteria. Negative for nitrite EKG tracing personally reviewed by me-atrial fibrillation. Rate 104 PVC. Assessment and plan: - New onset atrial fibrillation with rapid ventricular rate initially. Now rate controlled IV Cardizem drip initially. . Lopressor 25 mg twice daily. Eliquis Cardiology following. - Morbid obesity BMI 70.3 Weight loss measures - Transaminitis. Improving Continue gentle hydration - Chronic gait dysfunction does use a walker at baseline - Chronic lower extremity lymphedema - Acute UTI with cystitis Urine culture negative IV ceftriaxone. ID following - Acute medical debility PT OT. - Acute on likely chronic kidney disease possibly stage III likely nephrosclerosis Admission creatinine 2.15. Today 1.23 - Nonpressure ulceration right thigh limited to skin breakdown, nonpressure ulceration left thigh limited to skin breakdown, *Dry and skin folds. Barrier cream.-Wound care following - Full code IV ceftriaxone. IV fluids 75 cc an hour. Repeat labs. - Past Medical History Past Medical History: No Reported History Additional Past Medical History / Comment(s): cataract surgery, 2 sections History of Any Multi-Drug Resistant Organisms: None Reported Past Surgical History: Section, Tubal Ligation Additional Past Surgical History / Comment(s): Bilateral cataract surgery Past Anesthesia/Blood Transfusion Reactions: No Reported Reaction Past Psychological History: Anxiety Smoking Status: Never smoker Past Alcohol Use History: None Reported Past Drug Use History: None Reported
[2025-06-16] MEDS: SODIUM CHLORIDE 0.45% 1,000 ML IV SCH (20:28)
[2025-06-17 07:44] LABS: ALT 80 U/L (4-34); AST 35 U/L (14-36); African American GFR (CKD) 77 (>60 ml/min/1.73 sqM); Albumin 2.7 g/dL (3.5-5.0); Albumin/Globulin Ratio 0.9; Alkaline Phosphatase 185 U/L (38-126); Anion Gap 7 mmol/L; Blood Urea Nitrogen 36 mg/dL (7-17); Calcium 8.6 mg/dL (8.4-10.2); Carbon Dioxide 25 mmol/L (22-30); Chloride 111 mmol/L (98-107); Globulin 3.1 g/dL; Glucose 71 mg/dL (74-99); Non-African American GFR(CKD) 66 (>60 ml/min/1.73 sqM); Potassium 3.8 mmol/L (3.5-5.1); Sodium 143 mmol/L (137-145); Total Protein 5.8 g/dL (6.3-8.2)
--- NOTE | 2025-06-17 10:06 | P.PN ---
Subjective Progress Note Date: 06/17/25 Patient is a 70-year-old female with no significant past medical history was transferred from [place] via EMS to [facility] for further management of new onset A-fib with the RVR. Patient reports that she presented to the outside facility yesterday due to generalized weakness, fatigue and nausea and vomiting ongoing for 3 days. Patient reports that yesterday she could barely walk and take shower due to fatigue and tiredness. Denies chest pain or shortness of breath. Patient reports that she has been trying keto diet to lose weight. Patient reports no history of coronary artery disease or arrhythmias. 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 Patient is currently not on any medication including medication for blood pressure or diabetes or any blood thinner. She is a non-smoker and no drinker and denies use of illicit drugs. Patient reports that she is too embarrassed to go to doctors due to her weight and have not seen a doctor for many years. Patient denies chest pain, shortness of breath, orthopnea, PND, dizziness, lightheadedness, worsening swelling of the legs, cough, dysuria, urgency or frequency of urination, diarrhea or constipation. Her troponin at outside facility was 0.8 and BNP 13,500 Echocardiogram with Doppler study showed low normal LV systolic function with an ejection fraction of 50%, technically difficult study 06/16/2025 Patient was seen and examined resting comfortably in bed. She is overall feeling better. She remains in atrial fibrillation with a controlled heart rate. Renal function shows improvement today. She remains on Eliquis 2.5 mg p.o. twice daily. 06/17/2025 The patient was seen and examined resting comfortably in bed. She is overall feeling fairly well. She remains in atrial fibrillation with controlled heart rate. Renal function is improved with normal creatinine. LFTs are improving. NT proBNP down to 6650. Physical examination: Vital signs reviewed General: No distress, appears at stated age, morbidly obese Head: atraumatic, normocephalic, symmetric ENT: Nose and ears atraumatic Neck: No cervical lymphadenopathy, trachea midline, supple Cardiovascular: S1S2 irregular, systolic murmur, positive dorsalis pedis pulse bilateral, 1+ bilateral pitting edema Lungs: CTA bilateral, no rhonchi, no rales, no accessory muscle use Abdominal: soft, nontender to palpation, no guarding Neuro: Awake, alert, oriented x 4 Assessment: #A-fib with RVR, likely persistent, currently rate controlled #Elevated troponin, likely type II NSTEMI due to oxygen supply/demand mismatch #Sepsis secondary to infection, likely source is lower extremity cellulitis versus abdominal # Morbid obesity #Transaminitis, improving #Prerenal azotemia, improving with normal creatinine #Normocytic anemia #Generalized weakness Plan: From cardiology's perspective medications were reviewed and we will continue the same. We will continue to follow the patient and provide further recommendations accordingly. [facility] note has been reviewed, I agree with a documented findings and plan of care. Patient was seen and examined. Objective - Vital Signs Vital signs: Vital Signs Temp 98.1 F 06/17/25 07:42 Pulse 97 06/17/25 07:42 Resp 18 06/17/25 07:42 BP 127/75 06/17/25 07:42 Pulse Ox 98 06/17/25 07:42 FiO2 Intake & Output 06/16/25 06/17/25 06/17/25 18:59 06:59 18:59 Output Total 500 1000 Balance -500 -1000 Weight 201.5 kg 221.9 kg Output: Urine 500 1000 Other: Voiding Method External Catheter External Catheter # Bowel Movements 1 1 - Labs CBC & Chem 7: 06/16/25 12:11 06/17/25 07:00 Labs: Abnormal Lab Results - Last 24 Hours (Table) 06/16/25 06/16/25 06/17/25 Range/Units 12:11 12:11 07:00 RBC 3.79 L (4.10-5.20) 10*6/uL Hgb 11.9 L (12.0-15.0) g/dL MCV 98.4 H (80.0-97.0) fL MCHC 31.9 L (32.0-37.0) g/dL Chloride 111 H (98-107) mmol/L BUN 36 H (7-17) mg/dL Glucose 71 L (74-99) mg/dL AST 45 H (14-36) U/L ALT 106 H 80 H (4-34) U/L Alkaline Phosphatase 222 H 185 H (38-126) U/L Total Protein 5.8 L (6.3-8.2) g/dL Albumin 2.7 L (3.5-5.0) g/dL
--- NOTE | 2025-06-17 18:37 | P.PN ---
Subjective Progress Note Date: 06/17/25 Principal diagnosis: Reason for follow-up is UTI/left leg cellulitis Patient is a 70-year-old female with a past medical history significant for anxiety morbid obesity did have a chronic swelling lower extremity has been transfer from [facility] for evaluation and treatment of new onset atrial fibrillation with RVR patient presented to the hospital presenting concern of generalized weakness fatigue also have the urinary symptoms concerning for UTI and there was concern for left leg cellulitis. On today's evaluation that is 06/17/2025, Patient is afebrile patient is currently on room air and denies having any shortness of breath, the patient denies any chest pain or cough, the patient denies any nausea vomiting did not have any abdominal pain and no diarrhea. No CBC has been obtained today creatinine normalized to 0.89 outpatient urine culture positive for Proteus that was sensitive to ceftriaxone Objective - Vital Signs Vital signs: Vital Signs Temp 98.1 F 06/17/25 07:42 Pulse 97 06/17/25 07:42 Resp 18 06/17/25 07:42 BP 127/75 06/17/25 07:42 Pulse Ox 98 06/17/25 07:42 FiO2 Intake & Output 06/16/25 06/17/25 06/17/25 18:59 06:59 18:59 Output Total 500 1000 Balance -500 -1000 Weight 201.5 kg 221.9 kg Output: Urine 500 1000 Other: Voiding Method External Catheter External Catheter External Catheter # Bowel Movements 1 1 - Exam GENERAL DESCRIPTION: An elderly female lying in bed in no distress RESPIRATORY SYSTEM: Unlabored breathing , decreased breath sounds at bases HEART: S1 S2 regular rate and rhythm , ABDOMEN: Soft , no tenderness EXTREMITIES: Bilateral lower extremity swelling with some redness to the left leg - Labs CBC & Chem 7: 06/16/25 12:11 06/17/25 07:00 Labs: Abnormal Lab Results - Last 24 Hours (Table) 06/16/25 06/16/25 06/17/25 Range/Units 12:11 12:11 07:00 RBC 3.79 L (4.10-5.20) 10*6/uL Hgb 11.9 L (12.0-15.0) g/dL MCV 98.4 H (80.0-97.0) fL MCHC 31.9 L (32.0-37.0) g/dL Chloride 111 H (98-107) mmol/L BUN 36 H (7-17) mg/dL Glucose 71 L (74-99) mg/dL AST 45 H (14-36) U/L ALT 106 H 80 H (4-34) U/L Alkaline Phosphatase 222 H 185 H (38-126) U/L Total Protein 5.8 L (6.3-8.2) g/dL Albumin 2.7 L (3.5-5.0) g/dL Microbiology - Last 24 Hours (Table) 06/14/25 10:00 Blood Culture - Preliminary Blood Assessment and Plan (1) Leukocytosis Current Visit: Yes Status: Acute Code(s): D72.829 - ELEVATED WHITE BLOOD CELL COUNT, UNSPECIFIED SNOMED Code(s): 756321138 (2) Left leg cellulitis Current Visit: Yes Status: Acute Code(s): L03.116 - CELLULITIS OF LEFT LOWER LIMB SNOMED Code(s): 54008187015235557 (3) Elevated liver enzymes Current Visit: Yes Status: Acute Code(s): R74.8 - ABNORMAL LEVELS OF OTHER SERUM ENZYMES SNOMED Code(s): 839980154 (4) UTI (urinary tract infection) Current Visit: Yes Status: Acute Code(s): N39.0 - URINARY TRACT INFECTION, SITE NOT SPECIFIED SNOMED Code(s): 29955565 Plan: 1patient presented hospital with generalized weakness did have associated nausea and vomiting patient noted to have a significant elevated white count source is likely multifactorial with predominantly GI symptom and also noted to have elevated liver enzymes question of possible gallbladder disease. 2patient did have minimal erythema to the left lower extremity cellulitis 3patient did have cloudy urine positive UA and did have urinary symptoms of burning on arrival to the [facility] improved with Rocephin likely Rocephin sensitive pathogen 4ultrasound of the right upper quadrant area did not show any findings of cholecystitis 5-patient outpatient urine culture positive for Proteus that was sensitive to ceftriaxone blood urine culture have been negative here so far. 6- patient to be treated with Rocephin 2 g daily transition to oral Ceftin on discharge Dictation was produced using [employer] dictation software. please excuse any grammatical, word or spelling errors. Time with Patient: Less than 30
--- NOTE | 2025-06-17 19:42 | P.PN ---
Progress Note - Text Progress Note Date: 06/17/25 Chief Complaint: Tired This is a pleasant 70-year-old patient with no family doctor. She presents feeling unwell. Going on for a few days. Started feeling weak in the legs. Rather tired. Has chronic swelling of lower extremity but not such edema. Denies any chest pain or shortness of breath. She did not vomited 2 days ago. She continued to feel legs feel very weak. To the point of difficulty walking. EKG in the ER showed atrial fibrillation. Rate of 104. Patient placed on IV Cardizem drip. An IV heparin drip. June 15: In bed. Comfortable. Eating fair. No fever. A-fib controlled. Looking for PT OT with view to rehab. manager medicare marketing on board. Discussed with the patient's sister at the bedside. June 16: Resting. Remains in A-fib. Controlled. Pending evaluation for rehab. Eating fair. On IV ceftriaxone for possible UTI per ID. June 17: Remains in A-fib. Controlled. Pending for determination for rehab. IV ceftriaxone for UTI per ID. Comfortable. Active Medications Acetaminophen (Acetaminophen Tab 325 Mg Tab) 650 mg PO Q6HR PRN PRN Reason: Mild Pain or Fever > 100.5 Apixaban (Apixaban 5 Mg Tab) 5 mg PO BID FOR[facility]LY [facility]; Protocol Last Admin: 06/17/25 10:01 Dose: 5 mg Diclofenac Sodium (Diclofenac Sodium Gel 100 Gm Tube) 4 gm TOPICAL BID PRN; Protocol PRN Reason: Pain Last Admin: 06/16/25 15:48 Dose: 4 gm Ceftriaxone Sodium 2 gm/ (Sodium Chloride) 50 mls @ 100 mls/hr IVPB Q24H [facility] Last Admin: 06/17/25 10:01 Dose: 100 mls/hr Sodium Chloride (Saline 0.45%) 1,000 mls @ 75 mls/hr IV .[id number] [facility] Last Admin: 06/17/25 06:47 Dose: 75 mls/hr Metoprolol Tartrate (Metoprolol Tartrate 25 Mg Tab) 25 mg PO BID [facility] Last Admin: 06/17/25 10:01 Dose: 25 mg Naloxone HCl (Naloxone 0.4 Mg/Ml 1 Ml Vial) 0.2 mg IV Q2M PRN PRN Reason: Opioid Reversal Nystatin (Nystatin 100,000 Unit/Gm Powd 15 Gm) 1 applic TOPICAL BID ANUSHKA; Protocol Last Admin: 06/17/25 10:00 Dose: 1 applic Ondansetron HCl (Ondansetron 4 Mg/2 Ml Vial) 4 mg IVP Q8HR PRN PRN Reason: Nausea And Vomiting Petrolatum (Zinc Oxide Paste (Z-Guard) 1 Applic) 1 applic TOPICAL DAILY ANUSHKA; Protocol Last Admin: 06/17/25 10:00 Dose: 1 applic Social history: . Lives with her . Does use a walker. Denies smoking. Denies alcohol. Physical examination: VITAL SIGNS: 97.6, 94, 19, 12/24/2022, 97% room air GENERAL: [BMI 79, resting comfortable EYES: [Pupils equal. Conjunctiva cruz l. HEENT: External appearance of nose and ears normal, oral cavity grossly normal. NECK: JVD not raised; masses not palpable. HEART: First and second heart sounds are normal; nonpitting edema. LUNGS: Respiratory rate increased; decreased breath sounds. ABDOMEN: Soft, nontender, liver spleen not palpable, no masses palpable. PSYCH: Alert and oriented x3; mood and affect cruz l. MUSCULOSKELETAL:No Clubbing/cyanosis;muscles-grossly intact NEUROLOGICAL: Cranial nerves grossly intact; no facial asymmetry, power and sensation grossly intact. INVESTIGATIONS, reviewed in the clinical context: June 17: Potassium 3.8 creatinine 0.89 AST 35 ALT 80 June 16: White count 7.5 hemoglobin 11.9 creatinine 1.23 AST 106 ALT 222 2D echocardiogram: EF 50%. Renal ultrasound unremarkable June 15: White count 18.7 hemoglobin 11.2 potassium 4 BUN 52 creatinine 1.68 June 14, 2025: White count 28.8 hemoglobin 11.4 platelets 141 sodium 138 potassium 3.4 BUN 57 creatinine 2.15 AST 142 ALT 211 Troponin I 0.123 0.100 0.084 TSH 3.28 UA: Large leukoesterase occasional bacteria. Negative for nitrite EKG tracing personally reviewed by me-atrial fibrillation. Rate 104 PVC. Assessment and plan: - New onset atrial fibrillation with rapid ventricular rate initially. Now rate controlled IV Cardizem drip initially. . Lopressor 25 mg twice daily. Eliquis Cardiology following. - Morbid obesity BMI 70.3 Weight loss measures - Transaminitis. Likely from dehydration improving Continue gentle hydration - Chronic gait dysfunction does use a walker at baseline - Chronic lower extremity lymphedema - Acute UTI with cystitis Urine culture negative IV ceftriaxone. ID following - Acute medical debility PT OT. - Acute kidney injury. Likely prerenal. Resolved Admission creatinine 2.15. Today 0.89 - No chronic kidney disease - Nonpressure ulceration right thigh limited to skin breakdown, nonpressure ulceration left thigh limited to skin breakdown, *Dry and skin folds. Barrier cream.-Wound care following - Full code IV ceftriaxone-per ID. DC IV fluids repeat labs. - Past Medical History Past Medical History: No Reported History Additional Past Medical History / Comment(s): cataract surgery, 2 sections History of Any Multi-Drug Resistant Organisms: None Reported Past Surgical History: Section, Tubal Ligation Additional Past Surgical History / Comment(s): Bilateral cataract surgery Past Anesthesia/Blood Transfusion Reactions: No Reported Reaction Past Psychological History: Anxiety Smoking Status: Never smoker Past Alcohol Use History: None Reported Past Drug Use History: None Reported
--- NOTE | 2025-06-18 12:45 | P.PN ---
Subjective Progress Note Date: 06/18/25 Principal diagnosis: Reason for follow-up is UTI/left leg cellulitis Patient is a 70-year-old female with a past medical history significant for anxiety morbid obesity did have a chronic swelling lower extremity has been transfer from [facility] for evaluation and treatment of new onset atrial fibrillation with RVR patient presented to the hospital presenting concern of generalized weakness fatigue also have the urinary symptoms concerning for UTI and there was concern for left leg cellulitis. On today's evaluation that is 06/18/2025, patient has been afebrile, patient is breathing comfortably and is currently on room air, patient denies having any ch est pain and cough, patient denies nausea vomiting or diarrhea and no abdominal pain. No new lab has been obtained today culture has been negative Objective - Vital Signs Vital signs: Vital Signs Temp 97.7 F 06/18/25 07:28 Pulse 90 06/18/25 07:28 Resp 18 06/18/25 07:28 BP 128/72 06/18/25 07:28 Pulse Ox 94 L 06/18/25 07:28 FiO2 Intake & Output 06/17/25 06/18/25 06/18/25 18:59 06:59 18:59 Output Total 700 1000 Balance -700 -1000 Weight 220.8 kg Output: Urine 700 1000 Other: Voiding Method External Catheter External Catheter # Voids 1 1 # Bowel Movements 1 1 - Exam GENERAL DESCRIPTION: An elderly female lying in bed in no distress RESPIRATORY SYSTEM: Unlabored breathing , decreased breath sounds at bases HEART: S1 S2 regular rate and rhythm , ABDOMEN: Soft , no tenderness EXTREMITIES: Bilateral lower extremity swelling with some redness to the left leg - Labs CBC & Chem 7: 06/16/25 12:11 06/17/25 07:00 Labs: Microbiology - Last 24 Hours (Table) 06/14/25 10:00 Blood Culture - Preliminary Blood Assessment and Plan (1) Leukocytosis Current Visit: Yes Status: Acute Code(s): D72.829 - ELEVATED WHITE BLOOD CELL COUNT, UNSPECIFIED SNOMED Code(s): 599932095 (2) Left leg cellulitis Current Visit: Yes Status: Acute Code(s): L03.116 - CELLULITIS OF LEFT LOWER LIMB SNOMED Code(s): 19906410468489559 (3) Elevated liver enzymes Current Visit: Yes Status: Acute Code(s): R74.8 - ABNORMAL LEVELS OF OTHER SERUM ENZYMES SNOMED Code(s): 513715796 (4) UTI (urinary tract infection) Current Visit: Yes Status: Acute Code(s): N39.0 - URINARY TRACT INFECTION, S ITE NOT SPECIFIED SNOMED Code(s): 40403297 Plan: 1patient presented hospital with generalized weakness did have associated nausea and vomiting patient noted to have a significant elevated white count source is likely multifactorial with predominantly GI symptom and also noted to have elevated liver enzymes question of possible gallbladder disease. 2patient did have minimal erythema to the left lower extremity cellulitis 3patient did have cloudy urine positive UA and did have urinary symptoms of burning on arrival to the [facility] improved with Rocephin likely Rocephin sensitive pathogen 4ultrasound of the right upper quadrant area did not show any findings of cholecystitis 5-patient outpatient urine culture positive for Proteus that was sensitive to ceftriaxone blood urine culture have been negative here so far. 6- patient to continue with Rocephin while inpatient, short course of oral Ceftin on discharge currently waiting for placement Dictation was produced using [employer] dictation software. please excuse any g rammatical, word or spelling errors. Time with Patient: Less than 30
--- NOTE | 2025-06-18 14:28 | CDI ---
Documentation Clarification Form Date: 06/18/2025 02:03:50 PM From: Valerie Schultz RN CCDS Phone: [phone] Admit Date: 06/14/2025 09:52:00 AM Patient Name: Carmen Ruiz Visit Number: [id number] Discharge Date: ATTENTION: The Clinical Documentation Specialists (CDI) and [facility] Coding Staff appreciate your assistance in clarifying documentation. Please respond to the clarification below the line at the bottom and electronically sign. The CDI & [facility] Coding staff will review the response and follow-up if needed. Please note: Queries are made part of the Legal Health Record. If you have any questions, please contact the author of this message via ITS. Provider: Gloria Klein NP Sepsis is documented In Cardiology Consult 06/14 through Cardiology notes 06/17 which may lack sufficient clinical evidence/support in the medical record. Additional clarification is requested. History/Risk Factors: 70 year old female presents to the ED as a transfer from [facility] for further management of new onset atrial fibrillation with generalized weakness over the past two months and starting to feel weak in the legs. Has chronic swelling of lower extremity. Medical History: Chronic lower extremity lymphedema, morbid obesity bmi 70.3 Clinical Indicators: 06/14 VSS B/P 99/89, HR 102, RR 20, Temp 98.1F Oral, SpO2 93% room air 06/14LABS: Wbc 28.80; Neutrophils 23.90; 06/14 Cardiology Consult: Sepsis secondary to infection, likely source is lower extremity cellulitis. 06/14 ID: Symptomatic UTI, Left lower extremity cellulitis not entirely ruled out. Patient has nausea and vomiting noted to have significant elevated white count. Source likely multifactorial with predominantly GI symptom and also noted to have elevated liver enzymes question of possible gallbladder disease. Treatment: 06/15 Ceftriaxone IVPB Q24H, 06/16 0.9NS 20cchr After work up and study, please clarify which diagnosis is most appropriate? [ ] Sepsis is ruled out. The patient had a localized infection without systemic response. [ x ] Sepsis was initially suspected, but subsequent clinical findings did not support the diagnosis, and it has been ruled out. [ ] Sepsis is clinically supported as evidenced by these additional clinical indicators: [ ] Other, please specify [ ] Unable to determine (Template Last Reviewed: November 2023) WESLY
--- NOTE | 2025-06-18 23:11 | P.PN ---
Subjective Progress Note Date: 06/18/25 Patient is a 70-year-old female with no significant past medical history was transferred from [place] via EMS to [facility] for further management of new onset A-fib with the RVR. Patient reports that she presented to the outside facility yesterday due to generalized weakness, fatigue and nausea and vomiting ongoing for 3 days. Patient reports that yesterday she could barely walk and take shower due to fatigue and tiredness. Denies chest pain or shortness of breath. Patient reports that she has been trying keto diet to lose weight. Patient reports no history of coronary artery disease or arrhythmias. 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 Patient is currently not on any medication including medication for blood pressure or diabetes or any blood thinner. She is a non-smoker and no drinker and denies use of illicit drugs. Patient reports that she is too embarrassed to go to doctors due to her weight and have not seen a doctor for many years. Patient denies chest pain, shortness of breath, orthopnea, PND, dizziness, lightheadedness, worsening swelling of the legs, cough, dysuria, urgency or frequency of urination, diarrhea or constipation. Her troponin at outside facility was 0.8 and BNP 13,500 Echocardiogram with Doppler study showed low normal LV systolic function with an ejection fraction of 50%, technically difficult study 06/16/2025 Patient was seen and examined resting comfortably in bed. She is overall feeling better. She remains in atrial fibrillation with a controlled heart rate. Renal function shows improvement today. She remains on Eliquis 2.5 mg p.o. twice daily. 06/17/2025 The patient was seen and examined resting comfortably in bed. She is overall feeling fairly well. She remains in atrial fibrillation with controlled heart rate. Renal function is improved with normal creatinine. LFTs are improving. NT proBNP down to 6650. 06/18/2025 Patient reports feeling better since the time of admission. Overall feeling better. Tolerating current cardiac medications No new cardiovascular symptoms Physical examination: Vital signs reviewed General: No distress, appears at stated age, morbidly obese Head: atraumatic, normocephalic, symmetric ENT: Nose and ears atraumatic Neck: No cervical lymphadenopathy, trachea midline, supple Cardiovascular: S1S2 irregular, systolic murmur, positive dorsalis pedis pulse bilateral, 1+ bilateral pitting edema Lungs: CTA bilateral, no rhonchi, no rales, no accessory muscle use Abdominal: soft, nontender to palpation, no guarding Neuro: Awake, alert, oriented x 4 Assessment: #A-fib with RVR, likely persistent, currently rate controlled #Elevated troponin, likely type II NSTEMI due to oxygen supply/demand mismatch #Sepsis secondary to infection, likely source is lower extremity cellulitis versus abdominal # Morbid obesity #Transaminitis, improving #Prerenal azotemia, improving with normal creatinine #Normocytic anemia #Generalized weakness Plan: From cardiology's perspective medications were reviewed and we will continue the same. At this time patient is stable from cardiac standpoint. Cardiology team will sign off. She is in a controlled atrial fibrillation Recommend outpatient follow-up with primary bioinformatics specialist. Objective - Vital Signs Vital signs: Vital Signs Temp 97.7 F 06/18/25 07:28 Pulse 100 06/18/25 14:00 Resp 18 06/18/25 14:00 BP 140/80 06/18/25 14:00 Pulse Ox 98 06/18/25 14:00 FiO2 Intake & Output 06/18/25 06/18/25 06/19/25 06:59 18:59 06:59 Output Total 1000 550 Balance -1000 -550 Weight 220.8 kg Output: Urine 1000 550 Other: Voiding Method External Catheter # Voids 1 1 # Bowel Movements 1 0 - Labs CBC & Chem 7: 06/16/25 12:11 06/17/25 07:00 Labs: Microbiology - Last 24 Hours (Table) 06/14/25 10:00 Blood Culture - Preliminary Blood
[2025-06-19 08:44] LABS: ALT 54 U/L (8-44); AST 27 U/L (13-35); Albumin 2.7 g/dL (3.8-4.9); Albumin/Globulin Ratio 0.90 Ratio (1.60-3.17); Alkaline Phosphatase 155 U/L (41-126); Anion Gap 9.20 mmol/L (4.00-12.00); BUN/Creat Ratio 42.33 Ratio (12.00-20.00); Blood Urea Nitrogen 25.4 mg/dL (9.0-27.0); Calcium 8.5 mg/dL (8.7-10.3); Carbon Dioxide 26.8 mmol/L (21.6-31.8); Chloride 107 mmol/L (96-109); Globulin 3.0 g/dL (1.6-3.3); Glucose 86 mg/dL (70-110); Magnesium 1.6 mg/dL (1.5-2.4); Potassium 3.7 mmol/L (3.5-5.5); Sodium 143 mmol/L (135-145); Total Protein 5.7 g/dL (6.2-8.2)
[2025-06-19 10:54] VITALS: BMI 78.6
--- NOTE | 2025-06-19 10:54 | P.PN ---
Subjective Progress Note Date: 06/18/25 Chief Complaint: Tired This is a pleasant 70-year-old patient with no family doctor. She presents feeling unwell. Going on for a few days. Started feeling weak in the legs. Rather tired. Has chronic swelling of lower extremity but not such edema. Denies any chest pain or shortness of breath. She did not vomited 2 days ago. She continued to feel legs feel very weak. To the point of difficulty walking. EKG in the ER showed atrial fibrillation. Rate of 104. Patient placed on IV Cardizem drip. An IV heparin drip. June 15: In bed. Comfortable. Eating fair. No fever. A-fib controlled. Looking for PT OT with view to rehab. grants manager on board. Discussed with the patient's sister at the bedside. June 16: Resting. Remains in A-fib. Controlled. Pending evaluation for rehab. Eating fair. On IV ceftriaxone for possible UTI per ID. June 17: Remains in A-fib. Controlled. Pending for determination for rehab. IV ceftriaxone for UTI per ID. Comfortable. 06/18/2025 Patient is seen in follow-up today was evaluated by cardiology currently rate controlled made adjustments to medications recommending to continue with current medicines and outpatient follow-up with cardiology. Patient is maintained on IV antibiotics with infectious disease following and awaiting finalized cultures. Patient is significantly weak and awaiting PT/OT therapy evaluation for notes to submit for ECF. Patient would like to go to [facility] and/or [facility] although unsure if there is a bed available. Social work awaiting review from facilities for acceptance and will require insurance authorization. Patient is currently afebrile and denies chest pain or shortness of breath. Patient would benefit greatly from ECF for continued strength and mobility as patient does live at home with assistance from family but has become increasingly more weak over the last few weeks. Review of systems: Constitutional: No reports of fatigue, fever, or chills Cardiovascular: No reports of chest pain or palpitations Respiratory: No reports of shortness of breath or cough GI: No reports of nausea, vomiting, or diarrhea : No reports of dysuria or retention Neurovascular: reports of extreme weakness with gait dysfunction All medications have been reviewed Physical examination: GENERAL: This is a pleasant 70-year-old female who is awake, alert and oriented x 3, well-developed, morbidly obese, appears older than stated age EYES: [Pupils equal. Conjunctiva normal. HEENT: External appearance of nose and ears normal, oral cavity grossly normal. NECK: JVD not raised; masses not palpable. HEART: First and second heart sounds are normal; nonpitting edema. LUNGS: Respiratory rate increased; decreased breath sounds. ABDOMEN: Soft, morbidly obese nontender, liver spleen not palpable, no masses palpable. PSYCH: Alert and oriented x3; mood and affect normal. MUSCULOSKELETAL:No Clubbing/cyanosis;muscles-grossly intact chronic lower extremity edema, nonpitting NEUROLOGICAL: Cranial nerves grossly intact; no facial asymmetry, power and sensation grossly intact. Assessment and plan: - New onset atrial fibrillation with rapid ventricular rate initially. Now rate controlled . Lopressor 25 mg twice daily. Eliquis Cardiology following recommending outpatient follow-up with primary hide and skin processing worker. - Morbid obesity BMI 78.3 Weight loss measures - Transaminitis. Likely from dehydration improving Continue gentle hydration - Chronic gait dysfunction does use a walker at baseline - Chronic lower extremity lymphedema - Acute UTI with cystitis, present on admission Urine culture negative IV ceftriaxone. ID following - Acute medical debility PT OT. Patient will require ECF on discharge and social work following making referrals awaiting acceptance and will require insurance authorization - Acute kidney injury. Likely prerenal. Resolved Admission creatinine 2.15. - No chronic kidney disease - Nonpressure ulceration right thigh limited to skin breakdown, nonpressure ulceration left thigh limited to skin breakdown, *Dry and skin folds. Barrier cream.-Wound care following GI prophylaxis DVT prophylaxis Full code Plan: Patient is continued on IV ceftriaxone and will transition to a short course of Ceftin on discharge per ID recommendations Cardiology has evaluated the patient and patient is currently rate controlled recommend to continue with telemetry monitoring and current cardiac medications. Cardiology has signed off the case recommending outpatient follow-up with primary hide and skin processing worker Patient has no primary care provider and will need to establish and resources will be provided on discharge Awaiting PT/OT therapy notes as patient is extremely weak and would benefit from PT/OT therapy and social work is following placing referrals to multiple ECF's. Patient would like [facility] and/or [facility] for continued PT/OT therapy. Patient will also require insurance authorization which will be submitted once patient has an accepting facility Due to multiple complex medical issues, overall prognosis is guarded The impression and plan of care has been dictated by Gloria Klein, Nurse Practitioner as directed. Dr. Reginald MD I have performed a history and examination and MDM of this patient, discussed the same with the dictator, and agree with the dictator's assessment and plan as written ,documented as a scribe. Based on total visit time, I have performed more than 50% of the visit. Objective - Vital Signs Vital signs: Vital Signs Temp 97.7 F 06/18/25 07:28 Pulse 90 06/18/25 07:28 Resp 18 06/18/25 07:28 BP 128/72 06/18/25 07:28 Pulse Ox 94 L 06/18/25 07:28 FiO2 Intake & Output 06/17/25 06/18/25 06/18/25 18:59 06:59 18:59 Output Total 700 1000 Balance -700 -1000 Weight 220.8 kg Output: Urine 700 1000 Other: Voiding Method External Catheter # Voids 1 1 # Bowel Movements 1 1 - Labs CBC & Chem 7: 06/16/25 12:11 06/19/25 04:51 Labs: Microbiology - Last 24 Hours (Table) 06/14/25 10:00 Blood Culture - Preliminary Blood
--- NOTE | 2025-06-19 15:05 | P.PN ---
Subjective Progress Note Date: 06/19/25 Principal diagnosis: Reason for follow-up is UTI/left leg cellulitis Patient is a 70-year-old female with a past medical history significant for anxiety morbid obesity did have a chronic swelling lower extremity has been transfer from [facility] for evaluation and treatment of new onset atrial fibrillation with RVR patient presented to the hospital presenting concern of generalized weakness fatigue also have the urinary symptoms concerning for UTI and there was concern for left leg cellulitis. On today's evaluation that is 06/19/2025, Patient is afebrile this morning patient denies having any chest pain shortness of breath or cough, the patient is currently on room air, patient denies any abdominal pain no diarrhea no nausea no vomiting. Patient did have a creatinine 0.6 no CBC was done today blood urine culture has been negative Objective - Vital Signs Vital signs: Vital Signs Temp 98.3 F 06/19/25 08:00 Pulse 96 06/19/25 08:00 Resp 18 06/19/25 08:00 BP 141/84 06/19/25 08:00 Pulse Ox 96 06/19/25 08:00 FiO2 Intake & Output 06/18/25 06/19/25 06/19/25 18:59 06:59 18:59 Output Total 550 800 Balance -550 -800 Weight 220.9 kg 220.9 kg Output: Urine 550 800 Other: Voiding Method External Catheter External Catheter # Voids 1 2 # Bowel Movements 0 - Exam GENERAL DESCRIPTION: An elderly female lying in bed in no distress RESPIRATORY SYSTEM: Unlabored breathing , decreased breath sounds at bases HEART: S1 S2 regular rate and rhythm , ABDOMEN: Soft , no tenderness EXTREMITIES: Bilateral lower extremity swelling with some redness to the left leg - Labs CBC & Chem 7: 06/16/25 12:11 06/19/25 04:51 Labs: Abnormal Lab Results - Last 24 Hours (Table) 06/19/25 Range/Units 04:51 BUN/Creatinine Ratio 42.33 H (12.00-20.00) Ratio Calcium 8.5 L (8.7-10.3) mg/dL ALT 54 H (8-44) U/L Alkaline Phosphatase 155 H (41-126) U/L Total Protein 5.7 L (6.2-8.2) g/dL Albumin 2.7 L (3.8-4.9) g/dL Albumin/Globulin Ratio 0.90 L (1.60-3.17) Ratio Microbiology - Last 24 Hours (Table) 06/14/25 10:00 Blood Culture - Preliminary Blood Assessment and Plan (1) Leukocytosis Current Visit: Yes Status: Acute Code(s): D72.829 - ELEVATED WHITE BLOOD CELL COUNT, UNSPECIFIED SNOMED Code(s): 271494955 (2) Left leg cellulitis Current Visit: Yes Status: Acute Code(s): L03.116 - CELLULITIS OF LEFT LOWER LIMB SNOMED Code(s): 58271092923340301 (3) Elevated liver enzymes Current Visit: Yes Status: Acute Code(s): R74.8 - ABNORMAL LEVELS OF OTHER SERUM ENZYMES SNOMED Code(s): 780172926 (4) UTI (urinary tract infection) Current Visit: Yes Status: Acute Code(s): N39.0 - URINARY TRACT INFECTION, SITE NOT SPECIFIED SNOMED Code(s): 63465629 Plan: 1patient presented hospital with generalized weakness did have associated nausea and vomiting patient noted to have a significant elevated white count source is likely multifactorial with predominantly GI symptom and also noted to have elevated liver enzymes question of possible gallbladder disease. 2patient did have minimal erythema to the left lower extremity cellulitis 3patient did have cloudy urine positive UA and did have urinary symptoms of bur julieta on arrival to the [facility] improved with Rocephin likely Rocephin sensitive pathogen 4ultrasound of the right upper quadrant area did not show any findings of cholecystitis 5-patient outpatient urine culture positive for Proteus that was sensitive to ceftriaxone blood urine culture have been negative here so far. 6- patient slowly clinical improvement to continue Rocephin while inpatient short course of oral Ceftin on discharge question concern answered Dictation was produced using [employer] dictation software. please excuse any grammatical, word or spelling errors. Time with Patient: Less than 30
[2025-06-19] MEDS ORDERED: Magnesium Replacement Protocol 1 EACH MISC MISCELLANE PRN (23:14)
[2025-06-19] MEDS: ACETAMINOPHEN TAB 325 MG TAB PO PRN (23:48)
[2025-06-20] MEDS: MAGNESIUM SULFATE-D5W PMX 1 GM in DEXTROSE/WATER 1 100ML.BAG IVPB SCH (01:18)
--- NOTE | 2025-06-20 06:29 | P.PN ---
Subjective Progress Note Date: 06/19/25 Chief Complaint: Tired This is a pleasant 70-year-old patient with no family doctor. She presents feeling unwell. Going on for a few days. Started feeling weak in the legs. Rather tired. Has chronic swelling of lower extremity but not such edema. Denies any chest pain or shortness of breath. She did not vomited 2 days ago. She continued to feel legs feel very weak. To the point of difficulty walking. EKG in the ER showed atrial fibrillation. Rate of 104. Patient placed on IV Cardizem drip. An IV heparin drip. June 15: In bed. Comfortable. Eating fair. No fever. A-fib controlled. Looking for PT OT with view to rehab. auto repair shop manager on board. Discussed with the patient's sister at the bedside. June 16: Resting. Remains in A-fib. Controlled. Pending evaluation for rehab. Eating fair. On IV ceftriaxone for possible UTI per ID. June 17: Remains in A-fib. Controlled. Pending for determination for rehab. IV ceftriaxone for UTI per ID. Comfortable. 06/18/2025 Patient is seen in follow-up today was evaluated by cardiology currently rate controlled made adjustments to medications recommending to continue with current medicines and outpatient follow-up with cardiology. Patient is maintained on IV antibiotics with infectious disease following and awaiting finalized cultures. Patient is significantly weak and awaiting PT/OT therapy evaluation for notes to submit for ECF. Patient would like to go to [facility] and/or [facility] although unsure if there is a bed available. Social work awaiting review from facilities for acceptance and will require insurance authorization. Patient is currently afebrile and denies chest pain or shortness of breath. Patient would benefit greatly from ECF for continued strength and mobility as patient does live at home with assistance from family but has become increasingly more weak over the last few weeks. 06/19/2025 Patient is seen in follow up today currently rate controlled and evaluated by cardiology recommending outpatient follow-up and continuing current cardiac medi cations. Patient with significant weakness evaluated by physical therapy recommending rehab and patient is agreeable. Apparently [facility] or [facility] in [place] have refused the patient and [facility] has accepted the patient and submitting for insurance authorization. Patient is tearful on exam with daughter at the bedside with concerns of depression and significant mental health issues in the family, will consult psychiatry and appreciate input and recommendations. Patient denies any suicidal ideation or wanting to harm herself. Patient is not sure if she wants to start medications at this time. Patient to continue with increased activity as tolerated and did work with physical therapy today and attempting to sit up at the side of the bed for longer periods. Patient is afebrile with no reported chest pain or shortness of breath. Review of systems: Constitutional: No reports of fatigue, fever, or chills Cardiovascular: No reports of chest pain or palpitations Respiratory: No reports of shortness of breath or cough GI: No reports of nausea, vomiting, or diarrhea : No reports of dysuria or retention Neurovascular: reports of extreme weakness with gait dysfunction All medications have been reviewed Physical examination: GENERAL: This is a pleasant 70-year-old female who is awake, alert and oriented x 3, well-developed, morbidly obese, appears older than stated age, quite tearful at times EYES: Pupils equal. Conjunctiva normal. HEENT: External appearance of nose and ears normal, oral cavity grossly normal. NECK: JVD not raised; masses not palpable. HEART: First and second heart sounds are normal; nonpitting edema. LUNGS: Respiratory rate increased; decreased breath sounds. ABDOMEN: Soft, morbidly obese nontender, liver spleen not palpable, no masses palpable. PSYCH: Alert and oriented x3; mood and affect normal. MUSCULOSKELETAL:No Clubbing/cyanosis;muscles-grossly intact chronic lower extremity edema, nonpitting NEUROLOGICAL: Cranial nerves grossly intact; no facial asymmetry, power and sensation grossly intact. Assessment and plan: - New onset atrial fibrillation with rapid ventricular rate initially. Now rate controlled . Lopressor 25 mg twice daily. Eliquis Cardiology following recommending outpatient follow-up with primary incising machine operator. - Morbid obesity BMI 78.3 Weight loss measures - Transaminitis. Likely from dehydration improving Continue gentle hydration - Chronic gait dysfunction does use a walker at baseline - Chronic lower extremity lymphedema - Acute UTI with cystitis, present on admission Urine culture negative IV ceftriaxone. ID following and will transition to oral Ceftin on discharge for a short course - Acute medical debility PT OT. Patient will require ECF on discharge and social work following making referrals awaiting acceptance and will require insurance authorization - Acute kidney injury. Likely prerenal. Resolved Admission creatinine 2.15. - No chronic kidney disease - Nonpressure ulceration right thigh limited to skin breakdown, nonpressure ulceration left thigh limited to skin breakdown, *Dry and skin folds. Barrier cream.-Wound care following GI prophylaxis DVT prophylaxis Full code Plan: Patient is continued on IV ceftriaxone and will transition to a short course of Ceftin on discharge per ID recommendations Cardiology has evaluated the patient and patient is currently rate controlled recommend to continue with telemetry monitoring and current cardiac medications. Cardiology has signed off the case recommending outpatient follow-up with primary incising machine operator Patient has no primary care provider and will need to establish and resources will be provided on discharge Patient evaluated by PT/OT therapy notes as patient is extremely weak and would benefit from PT/OT therapy and social work is following placing referrals to multiple ECF's. Patient wanted [facility] and/or [facility] and [place] although they cannot accommodate the patient given her weight status as they do not have the proper equipment. [facility]. Patient will also require insurance authorization which has been submitted Patient is tearful on exam with significant mental health history in the family and daughter at the bedside is concerned about her depression. Patient denies any suicidal ideation or thoughts of wanting to harm herself. Will consult psych and appreciate input recommendations. Possible discharge planning in the next 24 hours once insurance authorization is obtained. Due to multiple complex medical issues, overall prognosis is guarded The impression and plan of care has been dictated by Gloria Klein, Nurse Practitioner as directed. Dr. Reginald MD I have performed a history and examination and MDM of this patient, discussed the same with the dictator, and agree with the dictator's assessment and plan as written ,documented as a scribe. Based on total visit time, I have performed more than 50% of the visit. Objective - Vital Signs Vital signs: Vital Signs Temp 98.3 F 06/19/25 08:00 Pulse 96 06/19/25 08:00 Resp 18 06/19/25 08:00 BP 141/84 06/19/25 08:00 Pulse Ox 96 06/19/25 08:00 FiO2 Intake & Output 06/18/25 06/19/25 06/19/25 18:59 06:59 18:59 Output Total 550 800 Balance -550 -800 Weight 220.9 kg Output: Urine 550 800 Other: Voiding Method External Catheter External Catheter # Voids 1 2 # Bowel Movements 0 - Labs CBC & Chem 7: 06/16/25 12:11 06/19/25 04:51 Labs: Abnormal Lab Results - Last 24 Hours (Table) 06/19/25 Range/Units 04:51 BUN/Creatinine Ratio 42.33 H (12.00-20.00) Ratio Calcium 8.5 L (8.7-10.3) mg/dL ALT 54 H (8-44) U/L Alkaline Phosphatase 155 H (41-126) U/L Total Protein 5.7 L (6.2-8.2) g/dL Albumin 2.7 L (3.8-4.9) g/dL Albumin/Globulin Ratio 0.90 L (1.60-3.17) Ratio Microbiology - Last 24 Hours (Table) 06/14/25 10:00 Blood Culture - Preliminary Blood
[2025-06-20 08:21] VITALS: PULSE 90
[2025-06-20 08:27] LABS: ALT 45 U/L (8-44); AST 26 U/L (13-35); Albumin 2.7 g/dL (3.8-4.9); Albumin/Globulin Ratio 1.00 Ratio (1.60-3.17); Alkaline Phosphatase 138 U/L (41-126); Anion Gap 9.30 mmol/L (4.00-12.00); BUN/Creat Ratio 43.17 Ratio (12.00-20.00); Blood Urea Nitrogen 25.9 mg/dL (9.0-27.0); Calcium 8.4 mg/dL (8.7-10.3); Carbon Dioxide 27.7 mmol/L (21.6-31.8); Chloride 106 mmol/L (96-109); Globulin 2.7 g/dL (1.6-3.3); Glucose 92 mg/dL (70-110); Magnesium 1.9 mg/dL (1.5-2.4); Potassium 3.8 mmol/L (3.5-5.5); Sodium 143 mmol/L (135-145); Total Protein 5.4 g/dL (6.2-8.2)
--- NOTE | 2025-06-20 14:15 | P.CN ---
Psychiatric Consult - . Consult date: 06/20/25 Consult:: 06/20/25 13:39 IDENTIFYING DATA: This patient is a 70-year-old female, employed and lives with /foster son REASON FOR REFERRAL: Psychiatry was consulted for depression, anxiety HISTORY OF PRESENT ILLNESS: The patient presented to the hospital with chief complaint of arrhythmia/palpitations with EKG revealing A-fib with rapid ventricular rate cardiology consulted. Patient to be discharged to [facility] [place] for rehabilitation. Patient seen and evaluated in her room. She states being nervous about the transfer to rehab, a lot of fears of the unknown including how long she will be there and will her life return back to the way it was previously. 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 She was intermittently tearful. She denied a past psych history however does admit to chronic symptoms of depression and anxiety, states that she usually deals with this by talking to others including her daughter. She expr essed difficulties with overthinking, fearful about falling when leaving the house that caused her to be uncomfortable with leaving the house. She reports sleep difficulties, periods of decreased appetite but then will binge eat, low energy, anhedonia. She also describes anxiety that appears socially driven with fear of being scrutinized. At this time patient denies any suicidal or homicidal ideations, intent or plan. Patient denies any auditory, visual hallucinations and denies any paranoia or delusions. Patients admits to using no substances PAST PSYCHIATRIC HISTORY: Patient has no past psych history. Patient denies being on any psychiatric medications. Patient denies any previous psychiatric hospitalizations. Patient denies any psychiatric outpatient follow-up. She does mention having 2 online therapy sessions through [facility]. Patient denies any history of suicide attempts in the past. PAST MEDICAL HISTORY: Denies. ALLERGIES: as per EMR. CHEMICAL DEPENDENCY HISTORY: as per HPI. FAMILY PSYCHIATRIC/SUBSTANCE USE HISTORY: She states her father had bipolar disorder and that her aunt on her father side suffers from bipolar disorder SOCIAL HISTORY: Patient is and has 2 children and 1 foster son who lives with her and her . She owns her own business, completed some college. MENTAL STATUS EXAM: General Appearance: Patient appears to be younger than stated age is alert, pleasant, and cooperative. Patient appears to have poor hygiene and grooming wearing hospital gown with fair eye contact. Behavior: Patient is calmly lying in bed without any agitated behavior. She is intermittently tearful Speech: Patient's speech is fluent and nonpressured. Mood/Affect: Patient reports their mood is "nervous", affect is congruent Suicidality/Homicidality: Patient denies having any suicidal or homicidal ideation intent or plan. Perceptions: Patient denies any visual hallucinations and denies any auditory hallucinations Though content/process: There is no evidence of any delusional thought content and thought process is linear and goal-directed. Memory and concentration: AOX3, grossly intact for the purposes of this session. 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 -Would recommend the following medication changes/additions: Start Zoloft 25 mg daily for depression/anxiety. Patient was encouraged to speak to her outpatient provider regarding titrating this medication further and to restart therapy. Patient is open with seeing a psychiatrist and therapist and would like a list provided to her prior to discharge -community mental health social worker to provide patient with outpatient mental health/psychiatry resources for appropriate follow up upon discharge -Psychiatry will sign off at this time -Please contact with any questions.
--- NOTE | 2025-06-20 14:57 | P.DS ---
Providers Date of admission: 06/14/25 09:52 Expected date of discharge: 06/20/25 Attending physician: Masoud Hurley Consults: 06/14/25 09:39 Consult Physician Routine Consulting Provider: [facility] Consult Reason/Comments: a fib w/ RVR Do you want consulting provider notified?: Yes, Notify in am Consult Physician Routine Consulting Provider: Sanju Tarango Consult Reason/Comments: UTI, cellulitis, sepsis Do you want consulting provider notified?: Yes, Notify in am Primary care physician: Stated None Hospital Course: Final diagnosis - New onset atrial fibrillation with rapid ventricular rate initially. Now rate controlled - Morbid obesity BMI 78.3 - Transaminitis. Likely from dehydration improving - Chronic gait dysfunction does use a walker at baseline - Chronic lower extremity lymphedema - Acute UTI with cystitis, present on admission - Acute medical debility with generalized weakness and gait dysfunction - Acute kidney injury. Likely prerenal. Resolved Admission creatinine 2.15. - No chronic kidney disease - Nonpressure ulceration right thigh limited to skin breakdown, nonpressure ulceration left thigh limited to skin breakdown, no cellulitis noted - Sepsis, ruled out GI prophylaxis DVT prophylaxis Full code Her Discharge disposition Patient is being discharged in a stable condition with guarded prognosis to [facility] . Patient will follow-up with a primary care provider to establish in the outpatient setting upon discharge. Patient is to continue with oral Ceftin twice daily for the next 5 days and recommend close outpatient follow-up with cardiology as well as possible wound care center as scheduled. Total time taken is greater than 35 minutes. Hospital course This is a pleasant 70-year-old patient with no primary care doctor. She presents feeling unwell. Going on for a few days. Started feeling weak in the legs. Rather tired. Has chronic swelling of lower extremity but not such edema. Denies any chest pain or shortness of breath. She did vomit 2 days ago. She continued to feel legs feel very weak. To the point of difficulty walking. EKG in the ER showed atrial fibrillation. Rate of 104. Patient placed on IV Cardizem drip. An IV heparin drip. June 15: In bed. Comfortable. Eating fair. No fever. A-fib controlled. Looking for PT OT with view to rehab. scientific research manager on board. Discussed with the patient's sister at the bedside. June 16: Resting. Remains in A-fib. Controlled. Pending evaluation for rehab. Eating fair. On IV ceftriaxone for possible UTI per ID. June 17: Remains in A-fib. Controlled. Pending for determination for rehab. IV ceftriaxone for UTI per ID. Comfortable. 06/18/2025 Patient is seen in follow-up today was evaluated by cardiology currently rate controlled made adjustments to medications recommending to continue with current medicines and outpatient follow-up with cardiology. Patient is maintained on IV antibiotics with infectious disease following and awaiting finalized cultures. Patient is significantly weak and awaiting PT/OT therapy evaluation for notes to submit for ECF. Patient would like to go to [facility] and/or [facility] although unsure if there is a bed available. Social work awaiting review from facilities for acceptance and will require insurance authorization. Patient is currently afebrile and denies chest pain or shortness of breath. Patient would benefit greatly from ECF for continued strength and mobility as patient does live at home with assistance from family but has become increasingly more weak over the last few weeks. 06/19/2025 Patient is seen in follow up today currently rate controlled and evaluated by cardiology recommending outpatient follow-up and continuing current cardiac medications. Patient with significant weakness evaluated by physical therapy recommending rehab and patient is agreeable. Apparently [facility] or [facility] in [place] have refused the patient and [facility] has accepted the patient and submitting for insurance authorization. Patient is tearful on exam with daughter at the bedside with concerns of depression and significant mental health issues in the family, will consult psychiatry and appreciate input and recommendations. Patient denies any suicidal ideation or wanting to harm herself. Patient is not sure if she wants to start medications at this time. Patient to continue with increased activity as tolerated and did work with physical therapy today and attempting to sit up at the side of the bed for longer periods. Patient is afebrile with no reported chest pain or shortness of breath. 06/20/2025 Patient is seen in follow-up today has been accepted at [facility] and will be going there for continued strength and mobility. Patient was evaluated by psychiatry started on Zoloft as patient does have anxiety and depression. Discussed with psychiatrist about increasing dose and adjusting doses while in the outpatient setting. Was made aware there are counselors that come and visit in the ECF and patient would prefer a female to talk with. Patient was evaluated by cardiology maintained on metoprolol and Eliquis and will continue recommending outpatient cardiology follow-up. Patient has been cleared by consultations and insurance authorization has been approved and patient will be going to [facility] today. Please refer to other consultation notes for further HPI. Patient did have a urinary tract infection on admission was maintained on ceftriaxone and cultures are negative showing some improvement and per ID recommendations, patient will continue on Ceftin twice daily for the next 5 days to complete the course. Patient does need dietary assessment at [facility] for appropriate diets and also recommend continuing using zinc barrier paste to the bottom area with frequent offloading. Physical examination: GENERAL: This is a pleasant 70-year-old female who is awake, alert and oriented x 3, well-developed, morbidly obese, appears older than stated age, quite tearful at times EYES: Pupils equal. Conjunctiva normal. HEENT: External appearance of nose and ears normal, oral cavity grossly normal. NECK: JVD not raised; masses not palpable. HEART: First and second heart sounds are normal; nonpitting edema. LUNGS: Respiratory rate increased; decreased breath sounds. ABDOMEN: Soft, morbidly obese nontender, liver spleen not palpable, no masses palpable. PSYCH: Alert and oriented x3; mood and affect normal. MUSCULOSKELETAL:No Clubbing/cyanosis;muscles-grossly intact. Chronic lower extremity edema, nonpitting NEUROLOGICAL: Cranial nerves grossly intact; no facial asymmetry, power and sensation grossly intact. Please refer to medication reconciliation sheet for further list of medications The impression and plan of care has been dictated by Gloria Klein, Nurse Practitioner as directed. Dr. Reginald MD I have performed a history and examination and MDM of this patient, discussed the same with the dictator, and agree with the dictator's assessment and plan as written ,documented as a scribe. Based on total visit time, I have performed more than 50% of the visit. Patient Condition at Discharge: Fair Plan - Discharge Summary Discharge Rx Participant: Yes New Discharge Prescriptions: New Apixaban [Eliquis] 5 mg PO BID tab Sertraline [Zoloft] 25 mg PO DAILY tab cefuroxime axetiL [Ceftin] 500 mg PO BID 5 Days #10 tab Metoprolol Tartrate [Lopressor] 25 mg PO BID tab Nystatin 100,000 Unit/gm Powd [Mycostatin Powder] 1 applic TOPICAL BID each Acetaminophen Tab [Tylenol] 650 mg PO Q6HR PRN tab PRN Reason: Mild Pain Or Fever > 100.5 Diclofenac Sodium Gel [Voltaren 1% Gel] 4 gm TOPICAL BID PRN gm PRN Reason: Pain Discharge Medication List Acetaminophen Tab [Tylenol] 650 mg PO Q6HR PRN tab 06/20/25 [Rx] Apixaban [Eliquis] 5 mg PO BID tab 06/20/25 [Rx] Diclofenac Sodium Gel [Voltaren 1% Gel] 4 gm TOPICAL BID PRN gm 06/20/25 [Rx] Metoprolol Tartrate [Lopressor] 25 mg PO BID tab 06/20/25 [Rx] Nystatin 100,000 Unit/gm Powd [Mycostatin Powder] 1 applic TOPICAL BID each 06/20/25 [Rx] Sertraline [Zoloft] 25 mg PO DAILY tab 06/20/25 [Rx] cefuroxime axetiL [Ceftin] 500 mg PO BID 5 Days #10 tab 06/20/25 [Rx] Follow up Appointment(s)/Referral(s): Rodrigo Trejo MD [Medical Doctor] - 1 Week [facility], [NON-STAFF] - 1 Week Activity/Diet/Wound Care/Special Instructions: Patient is going to [facility] in [place] Patient to establish with a primary care provider in the outpatient setting Recommend follow-up outpatient with cardiology Continue taking medications as prescribed Continue with local wound care to lower extremities and elevating while at rest Continue with zinc barrier paste to the bottom and offloading with frequent position changes Continue heart healthy diet Discharge Disposition: TRANSFER TO SNF/ECF
[2025-06-20] MEDS: SERTRALINE 25 MG TAB PO SCH (15:17)
[2025-06-20 16:37] VITALS: BP 141/78; RESP 16; TEMP 98.1
--- NOTE | 2025-06-21 14:24 | P.PN ---
Subjective Progress Note Date: 06/20/25 Principal diagnosis: Reason for follow-up is UTI/left leg cellulitis Patient is a 70-year-old female with a past medical history significant for anxiety morbid obesity did have a chronic swelling lower extremity has been transfer from [facility] for evaluation and treatment of new onset atrial fibrillation with RVR patient presented to the hospital presenting concern of generalized weakness fatigue also have the urinary symptoms concerning for UTI and there was concern for left leg cellulitis. On today's evaluation that is 06/20/2025,the patient denies any fever or any chills, patient is breathing comfortably on room air, the patient denies chest pain shortness of breath and no significant cough, patient denies abdominal pain, no nausea vomiting or diarrhea. Denies pain to the left lower extremity. Patient did have a creatinine of 0.6 electrolytes are normal no CBC was done blood and urine has been negative Objective - Vital Signs Vital signs: Vital Signs Temp 97.6 F 06/20/25 06:53 Pulse 90 06/20/25 10:24 Resp 15 06/20/25 10:24 BP 136/80 06/20/25 06:53 Pulse Ox 97 06/20/25 06:53 FiO2 Intake & Output 06/19/25 06/20/25 06/20/25 18:59 06:59 18:59 Output Total 750 700 600 Balance -750 -700 -600 Weight 220.9 kg 223.1 kg Output: Urine 750 700 600 Other: Voiding Method External Catheter External Catheter # Bowel Movements 2 - Exam GENERAL DESCRIPTION: An elderly female lying in bed in no distress RESPIRATORY SYSTEM: Unlabored breathing , decreased breath sounds at bases HEART: S1 S2 regular rate and rhythm , ABDOMEN: Soft , no tenderness EXTREMITIES: Bilateral lower extremity swelling with some redness to the left leg - Labs CBC & Chem 7: 06/16/25 12:11 06/20/25 03:34 Labs: Abnormal Lab Results - Last 24 Hours (Table) 06/20/25 Range/Units 03:34 BUN/Creatinine Ratio 43.17 H (12.00-20.00) Ratio Calcium 8.4 L (8.7-10.3) mg/dL ALT 45 H (8-44) U/L Alkaline Phosphatase 138 H (41-126) U/L Total Protein 5.4 L (6.2-8.2) g/dL Albumin 2.7 L (3.8-4.9) g/dL Albumin/Globulin Ratio 1.00 L (1.60-3.17) Ratio Assessment and Plan (1) Leukocytosis Status: Acute Code(s): D72.829 - ELEVATED WHITE BLOOD CELL COUNT, UNSPECIFIED SNOMED Code(s): 051790483 (2) Left leg cellulitis Status: Acute Code(s): L03.116 - CELLULITIS OF LEFT LOWER LIMB SNOMED Code(s): 86893278227596719 (3) Elevated liver enzymes Status: Acute Code(s): R74.8 - ABNORMAL LEVELS OF OTHER SERUM ENZYMES SNOMED Code(s): 439498071 (4) UTI (urinary tract infection) Status: Acute Code(s): N39.0 - URINARY TRACT INFECTION, SITE NOT SPECIFIED SNOMED Code(s): 24158804 Plan: 1patient presented hospital with generalized weakness did have associated nausea and vomiting patient noted to have a significant elevated white count source is likely multifactorial with predominantly GI symptom and also noted to have elevated liver enzymes question of possible gallbladder disease. 2patient did have minimal erythema to the left lower extremity cellulitis 3patient did have cloudy urine positive UA and did have urinary symptoms of burning on arrival to the [facility] improved with Rocephin likely Rocephin sensitive pathogen 4ultrasound of the right upper quadrant area did not show any findings of cholecystitis 5-patient outpatient urine culture positive for Proteus that was sensitive to ceftriaxone blood urine culture have been negative here so far. 6- patient has shown clinical improvement received adequate IV Rocephin finishing therapy with oral Ceftin and close outpatient follow-up Dictation was produced using [employer] dictation software. please excuse any grammatical, word or spelling errors. Time with Patient: Less than 30
== END 2025-06-20 17:17 | DRG 281 ==
LOC: EC 08:43 → 3SCARD 09:52 → 4SSUR 06-15 17:30
PROVIDERS: ADMIT Hospitalist; ATTEND Hospitalist
DX: I48.19 Other persistent atrial fibrillation (principal); F32.0 Major depressive disorder, single episode, mild; D64.9 Anemia, unspecified; E66.01 Morbid (severe) obesity due to excess calories; Z68.45 Body mass index [BMI] 70 or greater, adult; I21.A1 Myocardial infarction type 2; L97.111 Non-pressure chronic ulcer of right thigh limited to breakdown of skin; L97.121 Non-pressure chronic ulcer of left thigh limited to breakdown of skin; N17.9 Acute kidney failure, unspecified; L03.116 Cellulitis of left lower limb; N30.90 Cystitis, unspecified without hematuria; E86.0 Dehydration; I89.0 Lymphedema, not elsewhere classified; R74.01 Elevation of levels of liver transaminase levels; R53.81 Other malaise; F40.02 Agoraphobia without panic disorder; F40.10 Social phobia, unspecified; Z80.0 Family history of malignant neoplasm of digestive organs
CPT/HCPCS: 76705; 76770; 80048; 80053; 80061; 81001; 82247; 82607; 82728; 82747; 83036; 83540; 83550; 83605; 83735; 83880; 84075; 84443; 84450; 84460; 84484; 85025; 85027; 85610; 85730; 87040; 87086; 93005; 93306; 96365; 96366; 96368; 96375; 99285